=== PATIENT | male | born 1950 | race Caucasian/White ===

== ENCOUNTER 2019-02-07 08:18 | Emergency (ER) | payer MEDICARE, SELFPAY ==
[2019-02-07] VITALS (13 sets, daily range): BP systolic 132–140; BP diastolic 75–82; PULSE 85–109; RESP 14–20; TEMP 36.8; O2SAT 95–97
--- NOTE | 2019-02-07 08:37 | ED.GENADUL_ITS ---
Discharge Plan Disposition Patient Disposition: HOME Condition: Stable Discharge Details Chief Complaint: Abd Prob Clinical Impression: Flank pain, Lytic bone lesions on xray Primary Care Provider: None,None ED Provider: Arvind Humphries Home Meds and New Rx's Prescriptions: Continued ibuprofen [Ibuprofen IB] 200 mg Tablet 800 mg PO PRNRF: 0 naproxen sodium [Aleve] 220 mg Capsule 2 PO PRN PRNRF: 0 Discharge Instructions Instructions: Flank Pain (ED) Additional Instructions: Your cat scan showed lesions in your spine bones likely from a cancer and your prostate is enlarged. It is likely you have prostate cancer. you can take 1000mg tylenol and 600mg ibuprofen every 6 hours for pain as needed You should be contacted with an appointment with a primary care provider and urology. if you feel more ill, have high fevers, or severe worsening pain return to the emergency department Medical Decision Making 68 yo male with no medical problems though hasn't seen a provider in many years per patient, smoker, who drinks 3-4 beers daily but none for a week, who comes in with chief complaint of months of intermittent right sided flank pain and localizes it to the oblique area. States overnight it was severe and now feels better. Does improve with nsaids otherwise cant think of anything thatmakes it better/worse. He is noted to have mild tachycardia on exam, sinus on the monitor otherwise stable in no distress. He has oblique tenderness on the right otherwise no abdominal tenderness. Given location of pain will obtain ct to eval for kidney stone and possible rcc vs hcc given his smoking and drinking history and monitor. no chest pain or pressure and pain is reproducible in the oblique area so doubt entities such as acs, pe or dissection at this time Pt remains stable, HR now in the 90's and he no longer has pain. Per Dr. siddiqui the patient has lytic lesions in the spine and his prostate is enlarged on the CT. I suspect he has prostate cancer. He has no weakness, urinary retention or saddle anesthesia so do not feel emergent mri inidicated. Labs show elevated alk phos consistent with the lytic lesions otherwise no acute significant abnormalities. The patient was told of these results and understood the results. I am referring him to get set up with a pcp and also urology for further workup and he will ultimately need oncology which he understands. He understands he needs to return if worsening and again understands the importance of f/u if he wishes to have further workup for his undiagnosed cancer Differential Diagnosis Differential Diagnosis: kidney stone, spasm, rcc, hcc Imaging Data Radiologic Study: Attestation: I personally reviewed and interpreted this imaging study as follows: Imaging: CT Scan Radiologist's impression: lytic lesions in spine, enlarged prostate Lab Data Lab results reviewed: Yes I reviewed the patient's lab results. HPI General Mode of arrival: ambulatory . Date/Time Provider Initiated Documentation: 02/07/19 08:19 . Limitations to Documentation: no limitations . Information obtained by: patient . History of Present Illness 68 year old M presents to the emergency department with the chief complaint of flank pain, described as moderate, Patient started experiencing this month(s) (2) and it has been intermittent. Medication improves symptom(s), No exacerbating factors reported . Patient did receive the following treatments prior to arrival, none Related Data Home Medications Medication Instructions Recorded Confirmed ibuprofen [Ibuprofen IB] 800 mg PO PRN 02/07/19 naproxen sodium [Aleve] 2 PO PRN PRN 02/07/19 Allergies Allergy/AdvReac Type Severity Reaction Status Date / Time No Known Allergies Allergy Unverified 02/07/19 10:06 Review of Systems Review of Systems ROS Unobtainable: All systems reviewed & are unremarkable except as noted in HPI and below Constitutional Constitutional: Denies chills, Denies fever(s) and Denies weakness Cardiovascular Cardiovascular: Denies chest pain and Denies dyspnea Respiratory Respiratory: Denies dyspnea Gastrointestinal Gastrointestinal: Denies vomiting Musculoskeletal Musculoskeletal: Denies joint swelling Neurologic Neurologic: Denies weakness PFSH Social History Smoking/Tobacco Use Status: Former Tobacco Use Do you feel safe at home: Yes Do you feel safe in your relationship?: Yes Exam Const General: no acute distress Orientation: alert HENMT Head: normal to inspection Ears: external ears normal General nose exam: external nose normal Mouth: moist mucous membranes Eyes General: appearance normal, both eyes and all related structures Neck Neck: normal visual inspection Resp Effort & Inspection: normal respiratory effort and able to speak in complete sentences Cardio Rate: tachycardic GI Palpation: soft Skin General skin exam: no rashes or lesions noted Neuro General: alert and oriented x3 Extrem General: normal to inspection Psych Mental Status: mental status grossly normal
--- NOTE | 2019-02-07 08:37 | DI.CT_ITS ---
SYMPTOM/DIAGNOSIS: RIGHT FLANK PAIN CT ABDOMEN AND PELVIS: There are no prior comparison exams. A noncontrast exam was performed. The heart size is normal. The lung bases show mild interstitial thickening. The liver, gallbladder, spleen, pancreas and adrenals appear normal. There is slight motion at the level of the kidneys. No hydronephrosis or renal or ureteral calculi are seen. The prostate is enlarged. There is mild bladder wall thickening. The appendix appears normal. Thee is no bowel dilatation or wall thickening. No free air, free fluid or adenopathy seen. There are minimal bilateral fatty containing inguinal hernias. The bones have a diffusely mottled lytic and sclerotic appearance throughout the spine, pelvis and ribs. The findings are suspicious for metastatic disease. IMPRESSION: Diffusely abnormal lytic and sclerotic bony lesions highly suspicious for bony metastases. An enlarged prostate is also seen. There is no evidence of urinary tract calculi or hydronephrosis.
[2019-02-07 09:18] LABS: Abs Immature Grans 0.14 k/cumm (0.0-0.09); HCT 38.6 % (40.0-50.0); HGB 12.8 g/dL (13.5-17.5); Mean Corp. HGB Concentration 33.2 g/dL (32.0-36.0); Mean Corpuscular Hemoglobin 30.3 pg (27.0-33.0); Mean Corpuscular Volume 91.5 fL (80-95); Mean Platelet Volume 8.9 fL (8.0-11.0); Platelet Count 155 x1000/uL (130-400); RBC 4.22 m/cumm (4.50-6.00); RBC Distribution Width 14.5 % (11.8-14.1)
[2019-02-07] MEDS: Normal Saline 1,000 ML 1000 ML IV (09:19)
[2019-02-07 09:39] LABS: Absolute Lymphocyte Count 1.85 k/cumm (1.2-3.4); Absolute Monocyte Count 0.35 k/cumm (0.11-0.7); Atypical Lymphocytes % 6
[2019-02-07 09:40] LABS: Diff Comment Manual Differential; Polychromasia Present
[2019-02-07 09:46] LABS: ALT 30 U/L (16-63); AST 85 U/L (15-37); Albumin 3.2 g/dL (3.4-5.0); Anion Gap 10.4 mmol/L (3-11); BUN 18 mg/dL (7-18); Bilirubin, Total 0.6 mg/dL (0.2-1.0); CO2 25.6 mmol/L (21.0-32.0); CREATININE 0.73 mg/dL (0.70-1.30); Calcium 8.5 mg/dL (8.5-10.1); Chloride 102 mmol/L (98-107); Glucose 133 mg/dL (70-100); Lipase 64 U/L (73-393); Magnesium 1.9 mg/dL (1.8-2.4); Sodium 138 mmol/L (136-145); Total Protein 6.4 g/dL (6.4-8.2)
[2019-02-07 09:58] LABS: INR 1.1 (0.9-1.1); PTT Activated 24.2 sec (21.0-31.4); Prothrombin Time 10.8 sec (9.3-11.0)
[2019-02-07 10:00] LABS: Bilirubin Negative (Negative); Blood Negative (Negative); Clarity Clear (Clear); Glucose Negative (Negative); Ketones Negative (Negative); Leukocyte Esterase Negative (Negative); Nitrite Negative (Negative); Specific Gravity 1.015 (1.005-1.025); Urobilinogen 0.2 EU/dL (Up TO 0.2)
[2019-02-07 10:10] LABS: Alkaline Phosphatase 2214 U/L (46-116)
[2019-02-07 10:15] LABS: Bacteria Rare HPF (Negative); Crystals Negative HPF (Negative); Epithelial Cells Rare HPF (Negative); RBC Negative (0-2); WBC 0-2 HPF (0-5)
[2019-02-07 10:16] LABS: C & S Indicated? No; Casts Negative LPF (Negative); Mucus Trace (Negative)
--- NOTE | 2019-02-07 10:43 | NUR.NOTE ---
Faxed referral to [facility] and spoke with Yari [facility] [place] Fredo about getting patient established with pcp timi due to diagnosis.Nursing Note:
== END 2019-02-07 10:46 | disposition home or self-care (01) ==
PROVIDERS: Emergency Provider Emergency Medicine; PCP Nurse Practitioner Family
DX: M89.8X8 Other specified disorders of bone, other site (principal); N40.0 Benign prostatic hyperplasia without lower urinary tract symptoms; M54.5 Low back pain; R74.8 Abnormal levels of other serum enzymes; Z87.891 Personal history of nicotine dependence
CPT/HCPCS: 36415; 80053; 83690; 96360; 99284; 74176; 81003; 81015; 83735; 85025; 85610; 85730

== ENCOUNTER 2019-02-11 13:13 | Outpatient (REF) | payer MEDICARE, SELFPAY ==
[2019-02-13 12:05] LABS: Hepatitis C Ab w Rflx HCV PCR Negative (NEGAT)
[2019-02-13 12:12] LABS: Transferrin 167 mg/dL (201-352)
== END 2019-02-11 13:33 ==
LOC: NCHCN 13:13
PROVIDERS: PCP Nurse Practitioner Family; Visit Provider Family Medicine
DX: R79.89 Other specified abnormal findings of blood chemistry (principal); N40.0 Benign prostatic hyperplasia without lower urinary tract symptoms; R93.7 Abnormal findings on diagnostic imaging of other parts of musculoskeletal system; Z11.59 Encounter for screening for other viral diseases
CPT/HCPCS: 86803; 84153; 84466

== ENCOUNTER → 2019-02-17 14:20 | Outpatient (BNVA) | payer MEDICARE, SELFPAY | PROVIDERS: PCP Nurse Practitioner Family; Visit Provider Nurse Practitioner Gerontology | DX: N40.2 Nodular prostate without lower urinary tract symptoms (principal); R97.20 Elevated prostate specific antigen [PSA] | CPT/HCPCS: 99204; 99215 ==

== ENCOUNTER 2019-02-18 09:59 | Outpatient (CLI) | payer MEDICARE, SELFPAY ==
--- NOTE | 2019-02-18 11:00 | DI.US_ITS ---
EXAM: US PROSTATE BIOPSY CLINICAL HISTORY: elevated PSA; prostate nodule, N40.2. TECHNIQUE: Ultrasound performed using standard protocol. COMPARISON: No exams were available for comparison FINDINGS: Under ultrasound guidance biopsies of the prostate were obtained. Please see the procedure report fo r further information.
--- NOTE | 2019-02-18 11:10 | PROST_PTH ---
PATIENT: Arvind Blood LOC: MIC U#:[id number] AGE/SX: 68/M ROOM: RE02/18/[address]: Don Ibarra MD : [id number] BED: DIS: 02/18/2019 SPEC #: [id number] RECD: 02/18/19 12:48 STATUS: ERWIN JARAMILLO #: [id number] DESTINY: 02/18/19 11:[address]: Don Ibarra DEPT: Surgical Specimen RECD BY: Megan Watson ENTERED: 02/18/19 12:50 SP TYPE: PROST OTHR DR: Evelina Brooks Tissues: 1 - PROSTATE NEEDLE BIOPSY 2 - PROSTATE NEEDLE BIOPSY 3 - PROSTATE NEEDLE BIOPSY 4 - PROSTATE NEEDLE BIOPSY 5 - PROSTATE NEEDLE BIOPSY 6 - PROSTATE NEEDLE BIOPSY 7 - PROSTATE NEEDLE BIOPSY 8 - PROSTATE NEEDLE BIOPSY 9 - PROSTATE NEEDLE BIOPSY 10 - PROSTATE NEEDLE BIOPSY 11 - PROSTATE NEEDLE BIOPSY 12 - PROSTATE NEEDLE BIOPSY Procedures: GROSS AND MICRO LEVEL 4 Comments: [id number]
--- NOTE | 2019-02-18 12:27 | ROE_ITS ---
DATE OF PROCEDURE: February 18, 2019 PRE-PROCEDURE DIAGNOSIS: Elevated PSA with abnormal prostate exam and bony lesions. POST-PROCEDURE DIAGNOSIS: Same. PROCEDURE: Transrectal ultrasound-guided biopsy of the prostate. SURGEON: Don Ibarra M.D. ANESTHESIA: Local. COMPLICATIONS: None. HISTORY: This is a 68-year-old gentleman who's had several months of persistent back and hip pain. When the pain became intolerable, he presented to the Emergency Room. He was evaluated with a non-co ntrast CT scan. Multiple bony lesions were identified. Since then, he's had a PSA level drawn which was elevated at 88 ng/mL. On prostate exam he has a firm area on the right side of the prostate. H e presents for ultrasound-guided biopsy of the prostate for tissue diagnosis. PROCEDURE: The patient was brought to the procedure room on 02/18/19. He was placed in the left late ral position. A transrectal ultrasound probe was passed through the anal verge and the prostate was imaged in trans verse and longitudinal planes. The prostate was measured at approximately 46 cc's. There was some normal architecture seen on the left side of the prostate. Specifically, the delineat ion between the transition and peripheral zones was present. This normal architecture was lost on th e right side of the prostate. We did a periprostatic nerve block using 1% Xylocaine without epinephrine. We then took a total of 1 2 laterally-directed biopsies and sent them to Pathology for permanent section. The probe was removed. The patient tolerated this procedure well. With the high likelihood of metastatic prostate cancer being present, I went ahead and started him on Casodex 50 mg daily until the biopsy results are available. At that time he will likely start Lupro n. cc: Evelina Brooks N.P. Meera Chavez M.D.
== END 2019-02-18 10:19 ==
PROVIDERS: PCP Nurse Practitioner Family; Visit Provider Urology
DX: N40.2 Nodular prostate without lower urinary tract symptoms (principal); C61 Malignant neoplasm of prostate; R97.20 Elevated prostate specific antigen [PSA]
CPT/HCPCS: 55700; 76942; 76872; 88305

== ENCOUNTER 2019-02-19 13:38 | Outpatient (REF) | payer MEDICARE, SELFPAY | END 2019-02-19 13:58 | LOC: NCHCN 13:38 | PROVIDERS: PCP Nurse Practitioner Family; Visit Provider Nurse Practitioner Family | DX: R35.0 Frequency of micturition (principal) | CPT/HCPCS: 87086 ==

== ENCOUNTER → 2019-03-06 09:00 | Outpatient (BNVA) | payer MEDICARE, MEDICAID, SELFPAY | PROVIDERS: PCP Nurse Practitioner Family; Referring Provider Nurse Practitioner Family; Visit Provider Urology | DX: Z48.816 Encounter for surgical aftercare following surgery on the genitourinary system (principal); C61 Malignant neoplasm of prostate | CPT/HCPCS: 96402; 99214; J9217 ==

== ENCOUNTER 2019-04-03 02:59 | Outpatient (CLI) | payer MEDICARE, MEDICAID, SELFPAY ==
[2019-04-03 13:09] LABS: Abs Immature Grans 0.11 k/cumm (0.0-0.09); HCT 25.4 % (40.0-50.0); HGB 7.8 g/dL (13.5-17.5); Mean Corp. HGB Concentration 30.7 g/dL (32.0-36.0); Mean Corpuscular Hemoglobin 30.7 pg (27.0-33.0); Mean Platelet Volume 9.1 fL (8.0-11.0); Platelet Count 129 x1000/uL (130-400); RBC 2.54 m/cumm (4.50-6.00); RBC Distribution Width 18.5 % (11.8-14.1); White Blood Cell Count 3.74 k/cumm (4.4-10.8)
[2019-04-03 13:26] LABS: ALT 23 U/L (16-63); AST 26 U/L (15-37); Albumin 3.1 g/dL (3.4-5.0); Anion Gap 8.7 mmol/L (3-11); BUN 13 mg/dL (7-18); Bilirubin, Total 0.3 mg/dL (0.2-1.0); CO2 26.3 mmol/L (21.0-32.0); Calcium 8.1 mg/dL (8.5-10.1); Chloride 108 mmol/L (98-107); Glucose 134 mg/dL (70-100); Potassium 3.6 mmol/L (3.5-5.1); Sodium 143 mmol/L (136-145)
[2019-04-03 13:30] LABS: Absolute Eosinophil Count 0.11 k/cumm (0.0-0.7); Absolute Monocyte Count 0.22 k/cumm (0.11-0.7); Absolute Neutrophil Count 1.42 k/cumm (1.2-6.7); Nucleated RBC 5 /100WBC
[2019-04-03 13:31] LABS: Anisocytosis 2+; Basophilic Stippling Present; Diff Comment Manual Differential; Polychromasia Present
[2019-04-03 13:54] LABS: Alkaline Phosphatase 2379 U/L (46-116)
[2019-04-03] MEDS: Omnipaque 350 MG/ML 100 ML BTL IJ (14:00)
--- NOTE | 2019-04-03 14:30 | DI.CT_ITS ---
EXAM: CT CHEST W CLINICAL HISTORY: PROSTATE CA METASTATIC TO MULTIPLE SITES, C61, STAGING EXAM TECHNIQUE: CT examination chest was performed with a bolus infusion of 70 cc of Omnipaque 350. COMPARISON: No exams were available for comparison FINDINGS: There are innumerable mixed sclerotic and lytic lesions involving all the visualized bones consistent with widespread bony metastasis from known prostate carcinoma. Images obtained through the upper abdomen show grossly unremarkable appearance of visualized portions of liver, spleen, kidneys, adrenals and pancreas. There is mild prominence of mediastinal lymph nodes at multiple sites including subcarinal nodes regina uring up to about 2.5 cm in diameter and pretracheal nodes of about 12 millimeters in diameter. Trac heobronchial tree appears intact. No significant abnormality of thoracic aorta. No evidence of pulm onary embolic disease although the pulmonary arterial circulation is not ideally opacified. There are small bilateral pleural effusions. There is a 6 millimeter in diameter right lower lobe in trapulmonary nodule. There are a number of other areas of poorly defined, vaguely nodular increased radiodensity, the most prominent in left upper lobe laterally. Findings as described are suspicious for early prostatic pulmonary metastatic disease but no dominant mass is identified. IMPRESSION: Findings consistent with severe widespread bony metastatic disease from prostate carcinoma. Findings worrisome for multiple intrapulmonary metastatic lesions, please see above discussion. Slight prominence of mediastinal lymph nodes at multiple sites, indeterminate for metastatic disease.
[2019-04-04 13:54] LABS: PSA, Diagnostic 586.9 ng/ml (0-4.5)
[2019-04-07 12:29] LABS: Testosterone, Total 8.9 ng/dL (240-950)
== END 2019-04-03 03:19 ==
PROVIDERS: PCP Nurse Practitioner Family; Visit Provider Internal Medicine
DX: C61 Malignant neoplasm of prostate (principal); C79.51 Secondary malignant neoplasm of bone; J90 Pleural effusion, not elsewhere classified; R91.1 Solitary pulmonary nodule; R59.0 Localized enlarged lymph nodes; J98.4 Other disorders of lung
CPT/HCPCS: 80053; 84403; 71260; 84153; 85025; J3490

== ENCOUNTER 2019-04-08 16:42 | Outpatient (CLI) | payer MEDICARE, MEDICAID, SELFPAY | END 2019-04-08 17:02 | PROVIDERS: PCP Nurse Practitioner Family; Visit Provider Internal Medicine | DX: C61 Malignant neoplasm of prostate (principal); D63.0 Anemia in neoplastic disease | CPT/HCPCS: 36415; 80053; 84403; 86850; 86900; 86901; 86920; 82607; 82728; 82746; 84153; 85025 ==

== ENCOUNTER 2019-04-15 01:27 | Outpatient (RCR) | payer MEDICARE, MEDICAID, SELFPAY ==
[2019-04-08 17:19] LABS: Abs Immature Grans 0.12 k/cumm (0.0-0.09); HCT 28.7 % (40.0-50.0); Mean Corp. HGB Concentration 31.4 g/dL (32.0-36.0); Mean Corpuscular Hemoglobin 31.1 pg (27.0-33.0); Mean Corpuscular Volume 99.3 fL (80-95); Mean Platelet Volume 9.5 fL (8.0-11.0); Platelet Count 146 x1000/uL (130-400); RBC 2.89 m/cumm (4.50-6.00); RBC Distribution Width 18.7 % (11.8-14.1); White Blood Cell Count 3.68 k/cumm (4.4-10.8)
[2019-04-08 19:35] LABS: ALT 26 U/L (16-63); AST 26 U/L (15-37); Albumin 3.6 g/dL (3.4-5.0); Anion Gap 10.5 mmol/L (3-11); BUN 12 mg/dL (7-18); Bilirubin, Total 0.5 mg/dL (0.2-1.0); CO2 25.5 mmol/L (21.0-32.0); CREATININE 0.69 mg/dL (0.70-1.30); Calcium 8.3 mg/dL (8.5-10.1); Chloride 107 mmol/L (98-107); Folate 19.4 ng/mL (8.6-20.0); Glucose 122 mg/dL (70-100); Potassium 3.7 mmol/L (3.5-5.1); Sodium 143 mmol/L (136-145); Total Protein 6.1 g/dL (6.4-8.2); Vitamin B12 432 pg/mL (193-986)
[2019-04-08 19:54] LABS: Alkaline Phosphatase 2253 U/L (46-116); Ferritin > 1000 ng/mL (8-388)
[2019-04-08 21:19] LABS: Absolute Basophil Count 0.04 k/cumm (0.0-0.2); Absolute Lymphocyte Count 0.85 k/cumm (1.2-3.4); Absolute Monocyte Count 0.04 k/cumm (0.11-0.7); Absolute Neutrophil Count 2.65 k/cumm (1.2-6.7)
[2019-04-08 21:20] LABS: Diff Comment Manual Differential; Macrocytosis 1+; Nucleated RBC 6 /100WBC
[2019-04-10] VITALS (12 sets, daily range): BP systolic 104–163; BP diastolic 55–77; PULSE 59–75; RESP 18–19; TEMP 36.6–37.2; O2SAT 99–100
[2019-04-10 08:04] LABS: HCT 25.6 % (40.0-50.0); HGB 7.9 g/dL (13.5-17.5)
[2019-04-10] MEDS: Normal Saline Flush 10 ML SYR IVP (08:05)
[2019-04-14 16:29] LABS: PSA, Diagnostic 285.4 ng/ml (0-4.5)
[2019-04-15 08:26] LABS: Abs Immature Grans 0.49 k/cumm (0.0-0.09); Absolute Basophil Count 0.05 k/cumm (0.0-0.2); HCT 31.7 % (40.0-50.0); HGB 9.9 g/dL (13.5-17.5); Mean Corp. HGB Concentration 31.2 g/dL (32.0-36.0); Mean Corpuscular Hemoglobin 30.3 pg (27.0-33.0); Mean Corpuscular Volume 96.9 fL (80-95); Mean Platelet Volume 9.8 fL (8.0-11.0); Platelet Count 133 x1000/uL (130-400); RBC 3.27 m/cumm (4.50-6.00); RBC Distribution Width 16.9 % (11.8-14.1)
[2019-04-15 08:55] LABS: ALT 25 U/L (16-63); AST 20 U/L (15-37); Albumin 3.5 g/dL (3.4-5.0); Anion Gap 10.2 mmol/L (3-11); BUN 10 mg/dL (7-18); Bilirubin, Total 0.3 mg/dL (0.2-1.0); CO2 25.8 mmol/L (21.0-32.0); CREATININE 0.72 mg/dL (0.70-1.30); Calcium 8.3 mg/dL (8.5-10.1); Chloride 107 mmol/L (98-107); Glucose 140 mg/dL (70-100); Potassium 3.6 mmol/L (3.5-5.1); Sodium 143 mmol/L (136-145); Total Protein 6.3 g/dL (6.4-8.2)
[2019-04-15 09:01] LABS: Alkaline Phosphatase 1340 U/L (46-116)
[2019-04-15 09:05] LABS: Absolute Eosinophil Count 0.05 k/cumm (0.0-0.7); Absolute Lymphocyte Count 1.67 k/cumm (1.2-3.4); Absolute Monocyte Count 0.27 k/cumm (0.11-0.7); Absolute Neutrophil Count 2.07 k/cumm (1.2-6.7); Anisocytosis 1+; Atypical Lymphocytes % 2; Diff Comment Manual Differential; Hypochromasia 1+; Nucleated RBC 1 /100WBC
[2019-04-15 09:14] LABS: Testosterone, Total <7.0 ng/dL (240-950)
== END 2019-04-26 23:59 | disposition home or self-care (01) ==
LOC: INF 01:27
PROVIDERS: PCP Nurse Practitioner Family; Visit Provider Internal Medicine
DX: C61 Malignant neoplasm of prostate (principal)
CPT/HCPCS: 36415; 36430; 80053; 86900; 86901; 85014; 85018; 85025; P9016

== ENCOUNTER 2019-05-05 15:54 | Outpatient (REF) | payer MEDICARE, MEDICAID, SELFPAY ==
[2019-05-05 21:50] LABS: HCT 29.4 % (40.0-50.0); HGB 9.3 g/dL (13.5-17.5); Mean Corp. HGB Concentration 31.6 g/dL (32.0-36.0); Mean Corpuscular Hemoglobin 31.1 pg (27.0-33.0); Mean Corpuscular Volume 98.3 fL (80-95); Mean Platelet Volume 10.7 fL (8.0-11.0); Platelet Count 196 x1000/uL (130-400); RBC 2.99 m/cumm (4.50-6.00); RBC Distribution Width 16.8 % (11.8-14.1)
[2019-05-05 21:55] LABS: BUN 16 mg/dL (7-18); CREATININE 0.61 mg/dL (0.70-1.30)
[2019-05-05 23:43] LABS: Absolute Eosinophil Count 0.12 k/cumm (0.0-0.7); Absolute Lymphocyte Count 1.92 k/cumm (1.2-3.4); Absolute Monocyte Count 0.81 k/cumm (0.11-0.7); Absolute Neutrophil Count 3.35 k/cumm (1.2-6.7); Anisocytosis 1+; Diff Comment Manual Differential; Hypochromasia 1+
== END 2019-05-05 16:14 ==
LOC: NCHCN 15:54
PROVIDERS: PCP Nurse Practitioner Family; Visit Provider Nurse Practitioner Family
DX: C61 Malignant neoplasm of prostate (principal)
CPT/HCPCS: 84520; 82565; 85025

== ENCOUNTER 2019-05-20 03:32 | Outpatient (RCR) | payer MEDICARE, MEDICAID, SELFPAY ==
[2019-04-29] MEDS: Normal Saline Flush 10 ML SYR IVP (08:37)
[2019-04-29 08:43] LABS: Abs Immature Grans 0.02 k/cumm (0.0-0.09); Absolute Basophil Count 0.11 k/cumm (0.0-0.2); Absolute Eosinophil Count 0.07 k/cumm (0.0-0.7); Absolute Lymphocyte Count 1.09 k/cumm (1.2-3.4); Absolute Monocyte Count 0.57 k/cumm (0.11-0.7); Absolute Neutrophil Count 2.85 k/cumm (1.2-6.7); Basophils % 2.3; Eosinophils % 1.5; HGB 9.1 g/dL (13.5-17.5); Immature Grans % 0.4; Lymphocytes % 23.1; Mean Corp. HGB Concentration 31.4 g/dL (32.0-36.0); Mean Corpuscular Hemoglobin 30.8 pg (27.0-33.0); Mean Corpuscular Volume 98.3 fL (80-95); Mean Platelet Volume 9.1 fL (8.0-11.0); Monocytes % 12.1; Neutrophils % 60.6; Platelet Count 235 x1000/uL (130-400); RBC 2.95 m/cumm (4.50-6.00); RBC Distribution Width 17.1 % (11.8-14.1); White Blood Cell Count 4.71 k/cumm (4.4-10.8)
[2019-04-29 09:04] LABS: ALT 23 U/L (16-63); AST 18 U/L (15-37); Albumin 3.4 g/dL (3.4-5.0); Alkaline Phosphatase 714 U/L (46-116); Anion Gap 9.3 mmol/L (3-11); BUN 15 mg/dL (7-18); Bilirubin, Total 0.4 mg/dL (0.2-1.0); CO2 26.7 mmol/L (21.0-32.0); CREATININE 0.65 mg/dL (0.70-1.30); Calcium 8.5 mg/dL (8.5-10.1); Chloride 106 mmol/L (98-107); Glucose 95 mg/dL (74-106); Potassium 3.7 mmol/L (3.5-5.1); Sodium 142 mmol/L (136-145); Total Protein 6.2 g/dL (6.4-8.2)
[2019-04-30 15:33] LABS: PSA, Diagnostic 30.1 ng/mL (0.0-4.5)
[2019-05-20 09:44] LABS: Abs Immature Grans 0.01 k/cumm (0.0-0.09); Absolute Basophil Count 0.09 k/cumm (0.0-0.2); Absolute Eosinophil Count 0.09 k/cumm (0.0-0.7); Absolute Lymphocyte Count 0.73 k/cumm (1.2-3.4); Absolute Monocyte Count 0.56 k/cumm (0.11-0.7); Absolute Neutrophil Count 2.92 k/cumm (1.2-6.7); HCT 33.6 % (40.0-50.0); HGB 10.5 g/dL (13.5-17.5); Immature Grans % 0.2; Lymphocytes % 16.6; Mean Corp. HGB Concentration 31.3 g/dL (32.0-36.0); Mean Corpuscular Hemoglobin 30.9 pg (27.0-33.0); Mean Corpuscular Volume 98.8 fL (80-95); Monocytes % 12.7; Neutrophils % 66.5; Platelet Count 232 x1000/uL (130-400); RBC Distribution Width 17.2 % (11.8-14.1)
[2019-05-20 09:57] LABS: ALT 20 U/L (16-63); AST 23 U/L (15-37); Albumin 3.3 g/dL (3.4-5.0); Alkaline Phosphatase 365 U/L (46-116); Anion Gap 8.3 mmol/L (3-11); BUN 11 mg/dL (7-18); Bilirubin, Total 0.5 mg/dL (0.2-1.0); CO2 27.7 mmol/L (21.0-32.0); CREATININE 0.65 mg/dL (0.70-1.30); Calcium 8.3 mg/dL (8.5-10.1); Chloride 106 mmol/L (98-107); Glucose 128 mg/dL (74-106); Potassium 3.9 mmol/L (3.5-5.1); Sodium 142 mmol/L (136-145); Total Protein 6.1 g/dL (6.4-8.2)
[2019-05-22 09:58] LABS: PSA, Diagnostic 6.3 ng/mL (0.0-4.5)
[2019-05-24 02:43] LABS: Testosterone, Total <7.0 ng/dL (240-950)
== END 2019-05-27 23:59 | disposition home or self-care (01) ==
LOC: INF 03:32
PROVIDERS: PCP Nurse Practitioner Family; Visit Provider Internal Medicine
DX: C61 Malignant neoplasm of prostate (principal)
CPT/HCPCS: 36415; 80053; 84403; 86900; 86901; 84153; 85025

== ENCOUNTER 2019-06-10 01:54 | Outpatient (RCR) | payer MEDICARE, MEDICAID, SELFPAY ==
[2019-06-10 10:26] LABS: Abs Immature Grans 0.01 k/cumm (0.0-0.09); Absolute Basophil Count 0.11 k/cumm (0.0-0.2); Absolute Eosinophil Count 0.08 k/cumm (0.0-0.7); Absolute Lymphocyte Count 1.25 k/cumm (1.2-3.4); Absolute Monocyte Count 0.63 k/cumm (0.11-0.7); Absolute Neutrophil Count 2.73 k/cumm (1.2-6.7); Basophils % 2.3; Eosinophils % 1.7; HCT 37.3 % (40.0-50.0); Immature Grans % 0.2 %; Mean Corp. HGB Concentration 32.2 g/dL (32.0-36.0); Mean Corpuscular Hemoglobin 31.1 pg (27.0-33.0); Mean Corpuscular Volume 96.6 fL (80-95); Mean Platelet Volume 9.5 fL (8.0-11.0); Monocytes % 13.1; Neutrophils % 56.7; Platelet Count 266 x1000/uL (130-400); RBC 3.86 m/cumm (4.50-6.00); RBC Distribution Width 16.3 % (11.8-14.1); White Blood Cell Count 4.81 k/cumm (4.4-10.8)
[2019-06-10 10:38] LABS: ALT 19 U/L (16-63); AST 20 U/L (15-37); Albumin 3.4 g/dL (3.4-5.0); Alkaline Phosphatase 275 U/L (46-116); Anion Gap 8.4 mmol/L (3-11); BUN 12 mg/dL (7-18); Bilirubin, Total 0.4 mg/dL (0.2-1.0); CO2 27.6 mmol/L (21.0-32.0); CREATININE 0.57 mg/dL (0.70-1.30); Calcium 8.7 mg/dL (8.5-10.1); Chloride 107 mmol/L (98-107); Glucose 86 mg/dL (74-106); Potassium 3.9 mmol/L (3.5-5.1); Sodium 143 mmol/L (136-145); Total Protein 6.3 g/dL (6.4-8.2)
[2019-06-11 10:17] LABS: PSA, Diagnostic 2.5 ng/mL (0.0-4.5)
== END 2019-06-27 23:59 | disposition home or self-care (01) ==
LOC: INF 01:54
PROVIDERS: PCP Nurse Practitioner Family; Visit Provider Internal Medicine
DX: C61 Malignant neoplasm of prostate (principal)
CPT/HCPCS: 36415; 80053; 84153; 85025

== ENCOUNTER 2019-07-22 02:08 | Outpatient (RCR) | payer MEDICARE, MEDICAID, SELFPAY ==
[2019-07-01 10:48] LABS: Abs Immature Grans 0.01 k/cumm (0.0-0.09); Absolute Basophil Count 0.09 k/cumm (0.0-0.2); Absolute Eosinophil Count 0.06 k/cumm (0.0-0.7); Absolute Lymphocyte Count 1.46 k/cumm (1.2-3.4); Absolute Monocyte Count 0.81 k/cumm (0.11-0.7); Absolute Neutrophil Count 2.68 k/cumm (1.2-6.7); Basophils % 1.8; Eosinophils % 1.2; HCT 39.2 % (40.0-50.0); HGB 12.4 g/dL (13.5-17.5); Immature Grans % 0.2 %; Lymphocytes % 28.6; Mean Corp. HGB Concentration 31.6 g/dL (32.0-36.0); Mean Corpuscular Hemoglobin 30.4 pg (27.0-33.0); Mean Corpuscular Volume 96.1 fL (80-95); Mean Platelet Volume 9.7 fL (8.0-11.0); Monocytes % 15.9; Neutrophils % 52.3; Platelet Count 242 x1000/uL (130-400); RBC 4.08 m/cumm (4.50-6.00); RBC Distribution Width 16.2 % (11.8-14.1); White Blood Cell Count 5.11 k/cumm (4.4-10.8)
[2019-07-01 11:07] LABS: ALT 22 U/L (16-63); AST 22 U/L (15-37); Albumin 3.4 g/dL (3.4-5.0); Alkaline Phosphatase 178 U/L (46-116); BUN 14 mg/dL (7-18); Bilirubin, Total 0.3 mg/dL (0.2-1.0); CREATININE 0.69 mg/dL (0.70-1.30); Calcium 8.3 mg/dL (8.5-10.1); Chloride 108 mmol/L (98-107); Glucose 95 mg/dL (74-106); Potassium 4.2 mmol/L (3.5-5.1); Sodium 142 mmol/L (136-145)
[2019-07-01 12:57] LABS: Magnesium 1.9 mg/dL (1.8-2.4)
[2019-07-02 12:12] LABS: PSA, Diagnostic 1.3 ng/mL (0.0-4.5)
[2019-07-03 12:42] LABS: Testosterone, Total <7.0 ng/dL (240-950)
[2019-07-22 10:41] LABS: Abs Immature Grans 0.01 k/cumm (0.0-0.09); Absolute Basophil Count 0.09 k/cumm (0.0-0.2); Absolute Eosinophil Count 0.09 k/cumm (0.0-0.7); Absolute Lymphocyte Count 1.64 k/cumm (1.2-3.4); Absolute Monocyte Count 0.81 k/cumm (0.11-0.7); Absolute Neutrophil Count 2.84 k/cumm (1.2-6.7); Basophils % 1.6; Eosinophils % 1.6; HCT 40.9 % (40.0-50.0); HGB 13.3 g/dL (13.5-17.5); Immature Grans % 0.2 %; Lymphocytes % 29.9; Mean Corp. HGB Concentration 32.5 g/dL (32.0-36.0); Mean Corpuscular Hemoglobin 30.6 pg (27.0-33.0); Mean Platelet Volume 10.1 fL (8.0-11.0); Monocytes % 14.8; Neutrophils % 51.9; Platelet Count 237 x1000/uL (130-400); RBC 4.35 m/cumm (4.50-6.00); RBC Distribution Width 15.7 % (11.8-14.1); White Blood Cell Count 5.48 k/cumm (4.4-10.8)
[2019-07-22 10:59] LABS: ALT 26 U/L (16-63); AST 21 U/L (15-37); Albumin 3.5 g/dL (3.4-5.0); Alkaline Phosphatase 160 U/L (46-116); Anion Gap 6.6 mmol/L (3-11); BUN 14 mg/dL (7-18); Bilirubin, Total 0.4 mg/dL (0.2-1.0); CO2 28.4 mmol/L (21.0-32.0); CREATININE 0.59 mg/dL (0.70-1.30); Calcium 8.5 mg/dL (8.5-10.1); Chloride 107 mmol/L (98-107); Glucose 86 mg/dL (74-106); Magnesium 1.8 mg/dL (1.8-2.4); Potassium 4.1 mmol/L (3.5-5.1); Sodium 142 mmol/L (136-145); Total Protein 6.1 g/dL (6.4-8.2)
[2019-07-23 10:18] LABS: PSA, Diagnostic 0.9 ng/mL (0.0-4.5)
== END 2019-07-26 23:59 | disposition home or self-care (01) ==
LOC: INF 02:08
PROVIDERS: Nurse Practitioner Adult Health; PCP Nurse Practitioner Family; Visit Provider Internal Medicine
DX: C61 Malignant neoplasm of prostate (principal)
CPT/HCPCS: 36415; 80053; 84403; 83735; 84153; 85025

== ENCOUNTER 2019-08-22 02:45 | Outpatient (CLI) | payer MEDICARE, MEDICAID, SELFPAY ==
--- NOTE | 2019-08-22 | DI.NM_ITS ---
EXAM: NM BONE SCAN WHOLE BODY GRP CLINICAL HISTORY: PROSTATE CA METASTATIC, C61. TECHNIQUE: Injected Dose: 26 mCi Tc-99m MDP Delayed Images: 2-3 hours. COMPARISON: CT CHEST/ABD/PEL W from 08/22/2019 FINDINGS: There is diffuse increased radiotracer uptake in the axial and appendicular skeleton consistent with diffuse osseous metastatic disease. Radiotracer activity is seen in the urinary bladder. IMPRESSION: Widespread osseous metastatic disease. DATA REPOSITORY:
[2019-08-22 09:04] LABS: Abs Immature Grans 0.01 k/cumm (0.0-0.09); Absolute Basophil Count 0.04 k/cumm (0.0-0.2); Absolute Eosinophil Count 0.32 k/cumm (0.0-0.7); Absolute Lymphocyte Count 1.39 k/cumm (1.2-3.4); Absolute Monocyte Count 0.72 k/cumm (0.11-0.7); Absolute Neutrophil Count 2.84 k/cumm (1.2-6.7); Basophils % 0.8; HCT 40.9 % (40.0-50.0); HGB 13.3 g/dL (13.5-17.5); Immature Grans % 0.2 %; Lymphocytes % 26.1; Mean Corp. HGB Concentration 32.5 g/dL (32.0-36.0); Mean Corpuscular Hemoglobin 29.9 pg (27.0-33.0); Mean Corpuscular Volume 91.9 fL (80-95); Mean Platelet Volume 10.3 fL (8.0-11.0); Monocytes % 13.5; Neutrophils % 53.4; Platelet Count 221 x1000/uL (130-400); RBC 4.45 m/cumm (4.50-6.00); RBC Distribution Width 15.3 % (11.8-14.1); White Blood Cell Count 5.32 k/cumm (4.4-10.8)
[2019-08-22 09:36] LABS: ALT 30 U/L (16-63); AST 28 U/L (15-37); Albumin 3.6 g/dL (3.4-5.0); Alkaline Phosphatase 139 U/L (46-116); Anion Gap 5.7 mmol/L (3-11); BUN 16 mg/dL (7-18); Bilirubin, Total 0.4 mg/dL (0.2-1.0); CO2 30.3 mmol/L (21.0-32.0); Calcium 8.9 mg/dL (8.5-10.1); Chloride 107 mmol/L (98-107); Glucose 81 mg/dL (74-106); Potassium 3.9 mmol/L (3.5-5.1); Sodium 143 mmol/L (136-145); Total Protein 6.2 g/dL (6.4-8.2)
[2019-08-22] MEDS: Normal Saline Flush 10 ML SYR IVP (09:39)
--- NOTE | 2019-08-22 10:10 | DI.CT_ITS ---
EXAM: CT CHEST/ABD/PEL W CLINICAL HISTORY: PROSTATE CA METASTATIC, C61, REASTAGING EXAM TECHNIQUE: Imaging Protocol: Axial computed tomography images with coronal and sagittal reformatted images were created and reviewed CONTRAST MATERIAL: Intravenous: Omnipaque 350 Contrast volume:structured data in ml Oral: yes / no COMPARISON: CT renal colic wo from 02/07/2019 CT renal colic wo from 02/07/2019 CT CHEST W from 04/03/2019 CT CHEST W from 04/03/2019 FINDINGS: CHEST: Tracheobronchial tree: Patent where visualized. Mediastinum and Amy: The lymph nodes in the mediastinum are stable. Pulmonary parenchyma: Emphysematous changes are present in the lungs. No focal consolidating infiltr ates are present. The 6 mm right lower lobe pulmonary nodule is stable. There are 2 small nodular d ensities associated with the right minor fissure likely reflecting lymph nodes. These are stable. N o new pulmonary nodules are present. Pleura: There is no pneumothorax. The pleural effusions have resolved. Heart: The heart is not dilated. No coronary artery calcifications are seen. No significant pericardi al effusion. Aorta: Thoracic aorta non-dilated. Atherosclerosis. Lymph nodes: Please see the above. Bones:Widespread sclerotic metastatic disease. No acute fracture or dislocation. ABDOMEN: Liver: Normal density. No measurable mass. Portal, Superior Mesenteric, and Splenic Veins: Unremarkable. Gallbladder and Biliary Tract: No radiodense calculus or dilation. Pancreas: Normal density, no abnormal calcifications or inflammatory process. Spleen: Normal. Adrenals: No masses seen. Kidneys: Normal size, contour and axis. No radiodense stones or obstructive uropathy. No masses seen. Stable cyst in the superior pole of the left kidney. Abdominal Aorta: Abdominal portion non-dilated. Atherosclerosis. Bowel: No obstruction or bowel wall thickening. Appendix is unremarkable. Small hiatal hernia. Peritoneal Cavity: No ascites, collection or mesenteric inflammatory response. Lymph Nodes: Within normal limits. Bones: Diffuse sclerotic metastatic disease. No acute fractures or subluxations. Soft Tissues: Unremarkable. PELVIS: Bladder: Symmetric distention, no gross wall thickening. Reproductive Organs: Mildly enlarged. Lymph Nodes: Within normal limits. Bones: Widespread sclerotic metastatic disease. No acute fracture or dislocation. IMPRESSION: 1. Diffuse widespread osseous metastatic disease. 2. Stable pulmonary nodules. RADIATION DOSE DELIVERED: DATA REPOSITORY: All CT scans at this facility are submitted to the National Radiology Data Registry (NRDR) Dose Index Registry (DIR) with the [employer] (ACR). RADIATION OPTIMIZATION: All CT scans at this facility use at least one of these dose optimization te chniques: automated exposure control; mA and/or kV adjustment per patient size (includes targeted exa ms where dose is matched to clinical indication); or iterative reconstruction.
[2019-08-22] MEDS: Omnipaque 350 MG/ML 100 ML BTL IJ (10:29)
[2019-08-25 10:21] LABS: PSA, Diagnostic 0.7 ng/mL (0.0-4.5)
[2019-08-26 23:27] LABS: Testosterone, Total 7.1 ng/dL (240-950)
== END 2019-08-22 03:05 ==
PROVIDERS: PCP Nurse Practitioner Family; Visit Provider Nurse Practitioner Adult Health
DX: C61 Malignant neoplasm of prostate (principal); C79.51 Secondary malignant neoplasm of bone; J43.9 Emphysema, unspecified; R91.8 Other nonspecific abnormal finding of lung field
CPT/HCPCS: 36415; 74177; 78306; 80053; 84403; 71260; 84153; 85025; J3490

== ENCOUNTER 2019-08-22 08:00 | Outpatient (RCR) | payer MEDICARE, MEDICAID, SELFPAY | END 2019-08-26 23:59 | disposition home or self-care (01) | LOC: INF 08:00 | PROVIDERS: PCP Nurse Practitioner Family; Visit Provider Internal Medicine | DX: C61 Malignant neoplasm of prostate (principal); C79.51 Secondary malignant neoplasm of bone; R91.1 Solitary pulmonary nodule | CPT/HCPCS: 36415 ==

== ENCOUNTER 2019-09-29 08:57 | Outpatient (RCR) | payer MEDICARE, MEDICAID, SELFPAY ==
[2019-09-29 09:14] LABS: Abs Immature Grans 0.01 k/cumm (0.0-0.09); Absolute Basophil Count 0.03 k/cumm (0.0-0.2); Absolute Eosinophil Count 0.25 k/cumm (0.0-0.7); Absolute Lymphocyte Count 1.83 k/cumm (1.2-3.4); Absolute Monocyte Count 0.55 k/cumm (0.11-0.7); Absolute Neutrophil Count 2.94 k/cumm (1.2-6.7); Basophils % 0.5; Eosinophils % 4.5; HGB 14.9 g/dL (13.5-17.5); Immature Grans % 0.2 %; Lymphocytes % 32.6; Mean Corp. HGB Concentration 33.9 g/dL (32.0-36.0); Mean Corpuscular Hemoglobin 30.5 pg (27.0-33.0); Mean Corpuscular Volume 90.2 fL (80-95); Mean Platelet Volume 9.7 fL (8.0-11.0); Monocytes % 9.8; Neutrophils % 52.4; Platelet Count 201 x1000/uL (130-400); RBC 4.88 m/cumm (4.50-6.00); RBC Distribution Width 14.4 % (11.8-14.1); White Blood Cell Count 5.61 k/cumm (4.4-10.8)
[2019-09-29 09:27] LABS: ALT 24 U/L (16-63); AST 20 U/L (15-37); Albumin 3.8 g/dL (3.4-5.0); Alkaline Phosphatase 151 U/L (46-116); BUN 14 mg/dL (7-18); Bilirubin, Total 0.6 mg/dL (0.2-1.0); CREATININE 0.75 mg/dL (0.70-1.30); Calcium 9.1 mg/dL (8.5-10.1); Chloride 104 mmol/L (98-107); Glucose 95 mg/dL (74-106); Potassium 4.3 mmol/L (3.5-5.1); Sodium 140 mmol/L (136-145); Total Protein 6.8 g/dL (6.4-8.2)
[2019-09-29 09:39] LABS: Calculated LDL 80 mg/dL (<100); Cholesterol 160 mg/dL (<200); HDL Cholesterol 61 mg/dL (40-60); Triglyceride 95 mg/dL (<150)
== END 2019-10-26 23:59 | disposition home or self-care (01) ==
LOC: INF 08:57
PROVIDERS: PCP Nurse Practitioner Family; Visit Provider Internal Medicine
DX: C61 Malignant neoplasm of prostate (principal); R93.7 Abnormal findings on diagnostic imaging of other parts of musculoskeletal system; R79.89 Other specified abnormal findings of blood chemistry
CPT/HCPCS: 36415; 80053; 80061; 84153; 85025

== ENCOUNTER 2019-11-03 02:45 | Outpatient (RCR) | payer MEDICARE, MEDICAID, SELFPAY ==
[2019-11-03 10:48] LABS: Abs Immature Grans 0.02 k/cumm (0.0-0.09); Absolute Basophil Count 0.03 k/cumm (0.0-0.2); Absolute Eosinophil Count 0.32 k/cumm (0.0-0.7); Absolute Lymphocyte Count 2.05 k/cumm (1.2-3.4); Absolute Monocyte Count 0.61 k/cumm (0.11-0.7); Absolute Neutrophil Count 4.64 k/cumm (1.2-6.7); Basophils % 0.4; Eosinophils % 4.2; HCT 42.3 % (40.0-50.0); HGB 14.5 g/dL (13.5-17.5); Immature Grans % 0.3 %; Lymphocytes % 26.7; Mean Corp. HGB Concentration 34.3 g/dL (32.0-36.0); Mean Corpuscular Hemoglobin 30.7 pg (27.0-33.0); Mean Corpuscular Volume 89.6 fL (80-95); Mean Platelet Volume 9.9 fL (8.0-11.0); Neutrophils % 60.4; Platelet Count 189 x1000/uL (130-400); RBC 4.72 m/cumm (4.50-6.00); RBC Distribution Width 13.9 % (11.8-14.1); White Blood Cell Count 7.67 k/cumm (4.4-10.8)
[2019-11-03 11:15] LABS: ALT 22 U/L (16-63); AST 21 U/L (15-37); Albumin 3.6 g/dL (3.4-5.0); Alkaline Phosphatase 138 U/L (46-116); Anion Gap 10.9 mmol/L (3-11); BUN 13 mg/dL (7-18); Bilirubin, Total 0.6 mg/dL (0.2-1.0); CO2 25.1 mmol/L (21.0-32.0); CREATININE 0.74 mg/dL (0.70-1.30); Chloride 108 mmol/L (98-107); Glucose 96 mg/dL (74-106); Potassium 4.1 mmol/L (3.5-5.1); Sodium 144 mmol/L (136-145); Total Protein 6.5 g/dL (6.4-8.2)
[2019-11-04 10:51] LABS: PSA, Diagnostic 0.1 ng/mL (0.0-4.5)
== END 2019-11-25 23:59 | disposition home or self-care (01) ==
LOC: INF 02:45
PROVIDERS: PCP Nurse Practitioner Family; Visit Provider Internal Medicine
DX: C61 Malignant neoplasm of prostate (principal)
CPT/HCPCS: 36415; 80053; 84153; 85025

== ENCOUNTER 2019-12-26 03:59 | Outpatient (RCR) | payer MEDICARE, MEDICAID, SELFPAY ==
[2019-12-01 14:23] LABS: Abs Immature Grans 0.02 k/cumm (0.0-0.09); Absolute Basophil Count 0.03 k/cumm (0.0-0.2); Absolute Eosinophil Count 0.07 k/cumm (0.0-0.7); Absolute Lymphocyte Count 1.62 k/cumm (1.2-3.4); Absolute Monocyte Count 0.48 k/cumm (0.11-0.7); Absolute Neutrophil Count 5.79 k/cumm (1.2-6.7); Basophils % 0.4; Eosinophils % 0.9; HCT 43.4 % (40.0-50.0); HGB 14.8 g/dL (13.5-17.5); Immature Grans % 0.2 %; Lymphocytes % 20.2; Mean Corp. HGB Concentration 34.1 g/dL (32.0-36.0); Mean Corpuscular Hemoglobin 31.1 pg (27.0-33.0); Mean Corpuscular Volume 91.2 fL (80-95); Mean Platelet Volume 10.3 fL (8.0-11.0); Neutrophils % 72.3; Platelet Count 208 x1000/uL (130-400); RBC 4.76 m/cumm (4.50-6.00); RBC Distribution Width 14.1 % (11.8-14.1); White Blood Cell Count 8.01 k/cumm (4.4-10.8)
[2019-12-01 14:33] LABS: ALT 20 U/L (16-63); AST 20 U/L (15-37); Alkaline Phosphatase 123 U/L (46-116); Anion Gap 6.9 mmol/L (3-11); BUN 16 mg/dL (7-18); Bilirubin, Total 0.6 mg/dL (0.2-1.0); CO2 29.1 mmol/L (21.0-32.0); CREATININE 0.83 mg/dL (0.70-1.30); Calcium 9.1 mg/dL (8.5-10.1); Chloride 106 mmol/L (98-107); Glucose 117 mg/dL (74-106); Potassium 4.3 mmol/L (3.5-5.1); Sodium 142 mmol/L (136-145)
[2019-12-02 09:11] LABS: PSA, Diagnostic 0.1 ng/mL (0.0-4.5)
[2019-12-04 11:50] LABS: Testosterone, Total <7.0 ng/dL (240-950)
[2019-12-26 09:23] LABS: Abs Immature Grans 0.02 10^3/uL (0.0-0.06); Absolute Basophil Count 0.06 10^3/uL (0.0-0.2); Absolute Eosinophil Count 0.45 10^3/uL (0.0-0.7); Absolute Lymphocyte Count 2.99 10^3/uL (1.2-3.4); Absolute Monocyte Count 0.79 10^3/uL (0.1-0.8); Absolute Neutrophil Count 3.78 10^3/uL (1.2-6.7); Basophils % 0.7; Eosinophils % 5.6; HCT 43.5 % (40.0-50.0); HGB 14.9 g/dL (13.5-17.5); Immature Grans % 0.2; MCH 31.3 pg (27.0-33.0); MCHC 34.3 % (32.0-36.0); MCV 91.4 fL (80-95); MPV 10.2 fL (8.0-11.0); Monocytes % 9.8; Neutrophils % 46.7; Platelet Count 199 10^3/uL (130-400); RBC 4.76 10^6/uL (4.36-5.78); RDW 13.2 % (11.8-14.1); RDW-SD 44.1 fL; WBC 8.09 10^3/uL (4.4-10.8)
[2019-12-26 09:38] LABS: ALT 21 U/L (16-63); AST 20 U/L (15-37); Albumin 3.9 g/dL (3.4-5.0); Alkaline Phosphatase 111 U/L (46-116); Anion Gap 10.1 mmol/L (3-11); BUN 12 mg/dL (7-18); Bilirubin, Total 0.7 mg/dL (0.2-1.0); CO2 26.9 mmol/L (21.0-32.0); CREATININE 0.79 mg/dL (0.70-1.30); Calcium 9.2 mg/dL (8.5-10.1); Chloride 106 mmol/L (98-107); Glucose 99 mg/dL (74-106); Potassium 3.8 mmol/L (3.5-5.1); Sodium 143 mmol/L (136-145); Total Protein 6.8 g/dL (6.4-8.2)
[2019-12-29 09:18] LABS: PSA, Diagnostic <0.1 ng/mL (0.0-4.5)
[2019-12-30 15:04] LABS: Testosterone, Total <7.0 ng/dL (240-950)
== END 2019-12-26 23:59 | disposition home or self-care (01) ==
LOC: INF 03:59
PROVIDERS: PCP Nurse Practitioner Family; Visit Provider Internal Medicine
DX: C61 Malignant neoplasm of prostate (principal)
CPT/HCPCS: 36415; 80053; 84403; 83735; 84153; 85025

== ENCOUNTER 2020-01-07 01:38 | Outpatient (CLI) | payer MEDICARE, MEDICAID, SELFPAY ==
--- NOTE | 2020-01-07 | DI.NM_ITS ---
EXAM: IN BONE SCAN WHOLE BODY GRP CLINICAL HISTORY: PROSTATE CA METASTATIC TO MULTIPLE SITES,C61. TECHNIQUE: Injected Dose: 25 mCi Tc-99m MDP Delayed Images: 2-3 hours. COMPARISON: [facility] BONE SCAN WHOLE BODY GRP from 08/22/2019 FINDINGS: There is activity seen in the kidneys and urinary bladder. There is stable diffuse uptake of radiotr acer consistent with osseous metastatic disease. IMPRESSION: 1. Widespread osseous metastatic disease. DATA REPOSITORY:
--- NOTE | 2020-01-07 10:50 | DI.CT_ITS ---
EXAM: CT CHEST/ABD/PEL W CLINICAL HISTORY: PROSTATE CA METASTATIC TO MULTIPLE SITES,C61 TECHNIQUE: Imaging Protocol: Axial computed tomography images with coronal and sagittal reformatted images were created and reviewed CONTRAST MATERIAL: Intravenous: Omnipaque 350 Contrast volume:100 mL Oral: Yes COMPARISON: CT CT CHEST/ABD/PEL W from 08/22/2019 FINDINGS: CHEST: Tracheobronchial tree: Patent where visualized. Mediastinum and Amy: Stable mediastinal lymph nodes. Pulmonary parenchyma: No focal consolidating infiltrates. Stable right lower lobe pulmonary nodule. No new nodules. Centrilobular and paraseptal emphysema. Pleura: No effusion or pneumothorax. Heart: The heart is not dilated. Mild coronary artery calcification. No pericardial effusion. Aorta: Thoracic aorta non-dilated. Mild atherosclerosis. Lymph nodes: Stable mediastinal lymph nodes. Bones:Widespread osseous metastatic disease. Soft tissues: Unremarkable. ABDOMEN: Liver: Normal density. No measurable mass. Portal, Superior Mesenteric, and Splenic Veins: Unremarkable. Gallbladder and Biliary Tract: No radiodense calculus or dilation. Pancreas: Normal density, no abnormal calcifications or inflammatory process. Spleen: Normal. Adrenals: No masses seen. Kidneys: Normal size, contour and axis. No radiodense stones or obstructive uropathy. No masses seen. Abdominal Aorta: Abdominal portion non-dilated. Mild atherosclerosis. Bowel: No obstruction or bowel wall thickening. Appendix is unremarkable. Small hiatal hernia. Peritoneal Cavity: No ascites, collection or mesenteric inflammatory response. Lymph Nodes: Within normal limits. Bones: Widespread osseous metastatic disease. Soft Tissues: Bilateral fat containing inguinal hernia. PELVIS: Bladder: Symmetric distention, no gross wall thickening. Reproductive Organs: Unremarkable as visualized. Lymph Nodes: Within normal limits. Bones: Widespread osseous metastatic disease. IMPRESSION: 1. Widespread osseous metastatic disease. 2. Stable pulmonary nodules. RADIATION DOSE DELIVERED: 1,547.3mGy.cm Total DLP DATA REPOSITORY: All CT scans at this facility are submitted to the National Radiology Data Registry (NRDR) Dose Index Registry (DIR) with the [employer] (ACR). RADIATION OPTIMIZATION: All CT scans at this facility use at least one of these dose optimization te chniques: automated exposure control; mA and/or kV adjustment per patient size (includes targeted exa ms where dose is matched to clinical indication); or iterative reconstruction.
[2020-01-07] MEDS: Omnipaque 350 MG/ML 100 ML BTL IJ (11:04)
[2020-01-07] MEDS: Normal Saline - Diluent 50 ML VIAL IV (11:04)
== END 2020-01-07 01:58 ==
PROVIDERS: PCP Nurse Practitioner Family; Visit Provider Nurse Practitioner Adult Health
DX: C61 Malignant neoplasm of prostate (principal); R91.8 Other nonspecific abnormal finding of lung field; C79.51 Secondary malignant neoplasm of bone
CPT/HCPCS: 74177; 78306; 71260; J3490

== ENCOUNTER 2020-02-20 04:38 | Outpatient (RCR) | payer MEDICARE, MEDICAID, SELFPAY ==
[2020-02-20 09:26] LABS: Abs Immature Grans 0.03 10^3/uL (0.0-0.06); Absolute Basophil Count 0.05 10^3/uL (0.0-0.2); Absolute Eosinophil Count 0.37 10^3/uL (0.0-0.7); Absolute Lymphocyte Count 2.27 10^3/uL (1.2-3.4); Absolute Monocyte Count 0.68 10^3/uL (0.1-0.8); Absolute Neutrophil Count 4.35 10^3/uL (1.2-6.7); Basophils % 0.6; Eosinophils % 4.8; HCT 42.7 % (40.0-50.0); HGB 14.4 g/dL (13.5-17.5); Immature Grans % 0.4; Lymphocytes % 29.3; MCH 32.6 pg (27.0-33.0); MCHC 33.7 % (32.0-36.0); MCV 96.6 fL (80-95); MPV 10.3 fL (8.0-11.0); Monocytes % 8.8; Neutrophils % 56.1; Nucleated RBC 0 %; Platelet Count 167 10^3/uL (130-400); RBC 4.42 10^6/uL (4.36-5.78); RDW-SD 46.4 fL; WBC 7.75 10^3/uL (4.4-10.8)
[2020-02-20 09:39] LABS: ALT 20 U/L (16-63); AST 16 U/L (15-37); Albumin 3.7 g/dL (3.4-5.0); Alkaline Phosphatase 108 U/L (46-116); Anion Gap 4.2 mmol/L (3-11); BUN 12 mg/dL (7-18); Bilirubin, Total 0.6 mg/dL (0.2-1.0); CO2 31.8 mmol/L (21.0-32.0); CREATININE 0.81 mg/dL (0.70-1.30); Chloride 106 mmol/L (98-107); Glucose 75 mg/dL (74-106); Potassium 3.5 mmol/L (3.5-5.1); Sodium 142 mmol/L (136-145); Total Protein 6.5 g/dL (6.4-8.2)
[2020-02-20 22:01] LABS: PSA, Diagnostic <0.1 ng/mL (0.0-4.5)
[2020-02-24 20:07] LABS: Testosterone, Total <7.0 ng/dL (240-950)
== END 2020-02-25 23:59 | disposition home or self-care (01) ==
LOC: INF 04:38
PROVIDERS: PCP Nurse Practitioner Family; Visit Provider Internal Medicine
DX: C61 Malignant neoplasm of prostate (principal); C79.89 Secondary malignant neoplasm of other specified sites; Z45.2 Encounter for adjustment and management of vascular access device
CPT/HCPCS: 36415; 80053; 84403; 84153; 85025

== ENCOUNTER 2020-05-12 01:11 | Outpatient (RCR) | payer MEDICARE, MEDICAID, SELFPAY ==
[2020-05-12 12:43] LABS: Abs Immature Grans 0.02 10^3/uL (0.0-0.06); Absolute Basophil Count 0.05 10^3/uL (0.0-0.2); Absolute Eosinophil Count 0.07 10^3/uL (0.0-0.7); Absolute Neutrophil Count 5.57 10^3/uL (1.2-6.7); Basophils % 0.6; Eosinophils % 0.9; HCT 43.1 % (40.0-50.0); HGB 14.4 g/dL (13.5-17.5); Immature Grans % 0.3; Lymphocytes % 19.5; MCH 32.2 pg (27.0-33.0); MCHC 33.4 % (32.0-36.0); MCV 96.4 fL (80-95); MPV 10.2 fL (8.0-11.0); Monocytes % 6.5; Neutrophils % 72.2; Nucleated RBC 0 %; Platelet Count 177 10^3/uL (130-400); RBC 4.47 10^6/uL (4.36-5.78); RDW 12.4 % (11.8-14.1); RDW-SD 43.8 fL; WBC 7.71 10^3/uL (4.4-10.8)
[2020-05-12 12:59] LABS: ALT 15 U/L (16-63); AST 13 U/L (15-37); Albumin 3.9 g/dL (3.4-5.0); Alkaline Phosphatase 109 U/L (46-116); Anion Gap 4.6 mmol/L (3-11); BUN 13 mg/dL (7-18); Bilirubin, Total 0.6 mg/dL (0.2-1.0); CO2 29.4 mmol/L (21.0-32.0); CREATININE 0.87 mg/dL (0.70-1.30); Calcium 9.1 mg/dL (8.5-10.1); Chloride 105 mmol/L (98-107); Glucose 104 mg/dL (74-106); Potassium 3.8 mmol/L (3.5-5.1); Sodium 139 mmol/L (136-145); Total Protein 6.9 g/dL (6.4-8.2)
[2020-05-14 10:16] LABS: PSA, Ultrasensitive 0.03 ng/mL (<= 4.5)
[2020-05-16 17:01] LABS: Testosterone, Total <7.0 ng/dL (240-950)
== END 2020-05-27 23:59 | disposition home or self-care (01) ==
LOC: INF 01:11
PROVIDERS: Nurse Practitioner Adult Health; PCP Nurse Practitioner Family; Visit Provider Internal Medicine
DX: C61 Malignant neoplasm of prostate (principal)
CPT/HCPCS: 36415; 80053; 84153; 84403; 85025

== ENCOUNTER 2020-05-31 13:54 | Outpatient (REF) | payer MEDICARE, MEDICAID, SELFPAY ==
[2020-05-31 17:21] LABS: Anion Gap 7.3 mmol/L (3-11); BUN 13 mg/dL (7-18); CO2 28.7 mmol/L (21.0-32.0); CREATININE 0.87 mg/dL (0.70-1.30); Calcium 9.3 mg/dL (8.5-10.1); Chloride 106 mmol/L (98-107); Glucose 89 mg/dL (74-106); Potassium 4.2 mmol/L (3.5-5.1); Sodium 142 mmol/L (136-145)
== END 2020-05-31 14:14 ==
LOC: NCHCN 13:54
PROVIDERS: PCP Nurse Practitioner Family; Visit Provider Nurse Practitioner Family
DX: R03.0 Elevated blood-pressure reading, without diagnosis of hypertension (principal)
CPT/HCPCS: 80048

== ENCOUNTER 2020-06-08 10:42 | Outpatient (CLI) | payer MEDICARE, MEDICAID, SELFPAY ==
--- NOTE | 2020-06-08 16:15 | DI.RAD_ITS ---
EXAM: XR RIBS RT W PA LAT CHEST CLINICAL HISTORY: BACK PAIN THORACIC REGION RT M54.6, R/O RT LOWER RIB FX IN PT W/ HX BONE. TECHNIQUE: 2D digital imaging was performed. COMPARISON: Prior chest CT scan March 2019 FINDINGS: Heart size is normal. Mediastinum is not widened. There are no confluent pulmonary infiltrates nor pleural effusions evident on the conventional plain film of chest but there is slightly increased mar kings in lung bases evident on the rib images. There is a subtle fracture of the right 9th rib. Pat ient has known blastic metastases from prostate malignancy. No other rib fractures identified. Also appear to be blastic lesions in the bones of the pelvis and lumbar spine. IMPRESSION: 1. Subtle right 9th rib fracture. Blastic osseous metastases, previously documented. 2. Subtle suggestion of lung infiltrates on the rib images, this within the right lung field. No ob vious pleural effusions. DATA REPOSITORY: RADIATION DOSE DELIVERED:
--- NOTE | 2020-06-08 16:32 | DI.VRAD_ITS ---
PROCEDURE INFORMATION: Exam: XR Right Ribs Exam date and time: 06/08/2020 4:04 PM Age: 69 years old Clinical indication: Other: Back pain thoracic region RT, R/O RT lower rib FX in PT w/hx bone mets after falling down stairs TECHNIQUE: Imaging protocol: XR Right ribs. Views: 2 views. COMPARISON: CT CHEST/ABD/PEL W 01/07/2020 10:40 AM FINDINGS: Bones/joints: Blastic metastasis involving the 9th rib. No pathological fracture. Soft tissues: Normal. IMPRESSION: Blastic metastasis. PROCEDURE INFORMATION: Exam: XR Chest, 2 Views Exam date and time: 06/08/2020 4:04 PM Age: 69 years old Clinical indication: Other: Back pain thoracic region RT, R/O RT lower rib FX in PT w/hx bone mets after falling down stairs TECHNIQUE: Imaging protocol: XR of the chest Views: 2 views. COMPARISON: CT CHEST/ABD/PEL W 01/07/2020 10:40 AM FINDINGS: Lungs: Unremarkable. No consolidation. Pleural space: Unremarkable. No pleural effusion. No pneumothorax. Heart/Mediastinum: Unremarkable. No cardiomegaly. Bones/joints: Diffuse blastic metastasis. IMPRESSION: 1. No acute findings. 2. Known blastic metastasis Dictated and Authenticated by: Shlomo Manley MD. Ordering:GUALBERTO Nunn MD
== END 2020-06-08 11:02 ==
PROVIDERS: PCP Nurse Practitioner Family; Visit Provider Nurse Practitioner Family
DX: R91.8 Other nonspecific abnormal finding of lung field (principal); S22.31XA Fracture of one rib, right side, initial encounter for closed fracture
CPT/HCPCS: 71046; 71100

== ENCOUNTER 2020-06-14 17:30 | Outpatient (REF) | payer MEDICARE, MEDICAID, SELFPAY ==
[2020-06-14 15:54] LABS: BUN 14 mg/dL (7-18); CREATININE 0.76 mg/dL (0.70-1.30); Calcium 9.1 mg/dL (8.5-10.1); Chloride 107 mmol/L (98-107); Glucose 87 mg/dL (74-106); Potassium 4.2 mmol/L (3.5-5.1); Sodium 142 mmol/L (136-145)
== END 2020-06-14 17:50 ==
LOC: NCHCN 17:30
PROVIDERS: PCP Nurse Practitioner Family; Visit Provider Nurse Practitioner Family
DX: I10 Essential (primary) hypertension (principal)
CPT/HCPCS: 80048

== ENCOUNTER 2020-08-06 05:02 | Outpatient (RCR) | payer MEDICARE, MEDICAID, SELFPAY ==
[2020-08-06 10:41] LABS: Abs Immature Grans 0.03 10^3/uL (0.0-0.06); Absolute Basophil Count 0.05 10^3/uL (0.0-0.2); Absolute Eosinophil Count 0.22 10^3/uL (0.0-0.7); Absolute Lymphocyte Count 2.75 10^3/uL (1.2-3.4); Absolute Monocyte Count 0.68 10^3/uL (0.1-0.8); Absolute Neutrophil Count 4.34 10^3/uL (1.2-6.7); Basophils % 0.6; Eosinophils % 2.7; HCT 42.5 % (40.0-50.0); HGB 14.5 g/dL (13.5-17.5); Immature Grans % 0.4; Lymphocytes % 34.1; MCH 32.8 pg (27.0-33.0); MCHC 34.1 % (32.0-36.0); MCV 96.2 fL (80-95); Monocytes % 8.4; Neutrophils % 53.8; Nucleated RBC 0 %; Platelet Count 187 10^3/uL (130-400); RBC 4.42 10^6/uL (4.36-5.78); RDW 12.1 % (11.8-14.1); WBC 8.07 10^3/uL (4.4-10.8)
[2020-08-06 10:54] LABS: ALT 22 U/L (16-63); AST 15 U/L (15-37); Albumin 3.9 g/dL (3.4-5.0); Alkaline Phosphatase 101 U/L (46-116); Anion Gap 8.5 mmol/L (3-11); BUN 11 mg/dL (7-18); Bilirubin, Total 0.6 mg/dL (0.2-1.0); CO2 29.5 mmol/L (21.0-32.0); CREATININE 0.8 mg/dL (0.70-1.30); Calcium 9.3 mg/dL (8.5-10.1); Chloride 106 mmol/L (98-107); Glucose 99 mg/dL (74-106); Potassium 3.9 mmol/L (3.5-5.1); Sodium 144 mmol/L (136-145); Total Protein 7.1 g/dL (6.4-8.2)
[2020-08-08 17:10] LABS: Testosterone, Total <7.0 ng/dL (240-950)
[2020-08-09 10:50] LABS: PSA, Ultrasensitive 0.03 ng/mL (<= 6.5)
== END 2020-08-25 23:59 | disposition home or self-care (01) ==
LOC: INF 05:02
PROVIDERS: Nurse Practitioner Adult Health; PCP Nurse Practitioner Family; Visit Provider Internal Medicine Hematology & Oncology
DX: C61 Malignant neoplasm of prostate (principal); C79.51 Secondary malignant neoplasm of bone
CPT/HCPCS: 36415; 80053; 84153; 84403; 85025

== ENCOUNTER 2020-11-05 03:27 | Outpatient (RCR) | payer MEDICARE, MEDICAID, SELFPAY ==
[2020-11-05 09:19] LABS: Abs Immature Grans 0.03 10^3/uL (0.0-0.06); Absolute Basophil Count 0.02 10^3/uL (0.0-0.2); Absolute Eosinophil Count 0.13 10^3/uL (0.0-0.7); Absolute Lymphocyte Count 1.17 10^3/uL (1.2-3.4); Absolute Monocyte Count 0.47 10^3/uL (0.1-0.8); Basophils % 0.2; Eosinophils % 1.6; HCT 43.6 % (40.0-50.0); HGB 14.6 g/dL (13.5-17.5); Immature Grans % 0.4; Lymphocytes % 14.6; MCH 32.2 pg (27.0-33.0); MCHC 33.5 % (32.0-36.0); MPV 10.1 fL (8.0-11.0); Monocytes % 5.9; Neutrophils % 77.3; Nucleated RBC 0 %; Platelet Count 202 10^3/uL (130-400); RBC 4.54 10^6/uL (4.36-5.78); RDW 12.3 % (11.8-14.1); RDW-SD 43.3 fL; WBC 8.02 10^3/uL (4.4-10.8)
[2020-11-05 09:58] LABS: ALT 22 U/L (16-63); AST 19 U/L (15-37); Albumin 3.9 g/dL (3.4-5.0); Alkaline Phosphatase 116 U/L (46-116); Anion Gap 7.2 mmol/L (3-11); BUN 13 mg/dL (7-18); Bilirubin, Total 0.7 mg/dL (0.2-1.0); CO2 29.8 mmol/L (21.0-32.0); CREATININE 0.8 mg/dL (0.70-1.30); Chloride 108 mmol/L (98-107); Glucose 79 mg/dL (74-106); Potassium 4.1 mmol/L (3.5-5.1); Sodium 145 mmol/L (136-145); Total Protein 6.8 g/dL (6.4-8.2)
[2020-11-06 12:34] LABS: PSA, Ultrasensitive 0.03 ng/mL (<= 6.5)
[2020-11-10 09:26] LABS: Testosterone, Total <7.0 ng/dL (240-950)
== END 2020-11-24 23:59 | disposition home or self-care (01) ==
LOC: INF 03:27
PROVIDERS: PCP Nurse Practitioner Family; Visit Provider Nurse Practitioner Adult Health
DX: C79.51 Secondary malignant neoplasm of bone (principal); C61 Malignant neoplasm of prostate
CPT/HCPCS: 36415; 80053; 84153; 84403; 85025

== ENCOUNTER 2021-02-11 04:46 | Outpatient (RCR) | payer MEDICARE, MEDICAID, SELFPAY ==
[2021-02-11 10:26] LABS: Abs Immature Grans 0.03 10^3/uL (0.0-0.06); Absolute Basophil Count 0.05 10^3/uL (0.0-0.2); Absolute Eosinophil Count 0.04 10^3/uL (0.0-0.7); Absolute Lymphocyte Count 1.05 10^3/uL (1.2-3.4); Absolute Monocyte Count 0.54 10^3/uL (0.1-0.8); Absolute Neutrophil Count 6.17 10^3/uL (1.2-6.7); Basophils % 0.6; Eosinophils % 0.5; HCT 41.2 % (40.0-50.0); HGB 13.7 g/dL (13.5-17.5); Immature Grans % 0.4; Lymphocytes % 13.3; MCH 32.2 pg (27.0-33.0); MCHC 33.3 % (32.0-36.0); MCV 96.9 fL (80-95); MPV 10.3 fL (8.0-11.0); Monocytes % 6.9; Neutrophils % 78.3; Nucleated RBC 0 %; Platelet Count 202 10^3/uL (130-400); RBC 4.25 10^6/uL (4.36-5.78); RDW 12.3 % (11.8-14.1); RDW-SD 43.8 fL; WBC 7.88 10^3/uL (4.4-10.8)
[2021-02-11 10:49] LABS: ALT 23 U/L (16-63); AST 20 U/L (15-37); Alkaline Phosphatase 117 U/L (46-116); Anion Gap 8.5 mmol/L (3-11); BUN 15 mg/dL (7-18); Bilirubin, Total 0.7 mg/dL (0.2-1.0); CO2 27.5 mmol/L (21.0-32.0); CREATININE 0.8 mg/dL (0.70-1.30); Chloride 107 mmol/L (98-107); Glucose 108 mg/dL (74-106); Potassium 4.1 mmol/L (3.5-5.1); Sodium 143 mmol/L (136-145)
[2021-02-14 15:35] LABS: PSA, Ultrasensitive 0.04 ng/mL (<= 6.5)
[2021-02-16 11:24] LABS: Testosterone, Total <7.0 ng/dL (240-950)
== END 2021-02-24 23:59 | disposition home or self-care (01) ==
LOC: INF 04:46
PROVIDERS: PCP Nurse Practitioner Family; Visit Provider Nurse Practitioner Adult Health
DX: C61 Malignant neoplasm of prostate (principal); C79.89 Secondary malignant neoplasm of other specified sites
CPT/HCPCS: 36415; 80053; 84153; 84403; 85025

== ENCOUNTER 2021-05-06 00:44 | Outpatient (RCR) | payer MEDICARE, MEDICAID, SELFPAY ==
[2021-05-06 09:33] LABS: Abs Immature Grans 0.02 10^3/uL (0.0-0.06); Absolute Basophil Count 0.04 10^3/uL (0.0-0.2); Absolute Eosinophil Count 0.19 10^3/uL (0.0-0.7); Absolute Lymphocyte Count 1.91 10^3/uL (1.2-3.4); Absolute Monocyte Count 0.73 10^3/uL (0.1-0.8); Absolute Neutrophil Count 4.25 10^3/uL (1.2-6.7); Basophils % 0.6; Eosinophils % 2.7; HCT 42.8 % (40.0-50.0); HGB 14.1 g/dL (13.5-17.5); Immature Grans % 0.3; Lymphocytes % 26.8; MCH 32.1 pg (27.0-33.0); MCHC 32.9 % (32.0-36.0); MCV 97.5 fL (80-95); MPV 10.6 fL (8.0-11.0); Monocytes % 10.2; Neutrophils % 59.4; Nucleated RBC 0 %; Platelet Count 178 10^3/uL (130-400); RBC 4.39 10^6/uL (4.36-5.78); RDW 12.4 % (11.8-14.1); RDW-SD 44.9 fL; WBC 7.14 10^3/uL (4.4-10.8)
[2021-05-06 09:54] LABS: ALT 23 U/L (16-63); AST 20 U/L (15-37); Albumin 3.9 g/dL (3.4-5.0); Alkaline Phosphatase 110 U/L (46-116); BUN 16 mg/dL (7-18); Bilirubin, Total 0.5 mg/dL (0.2-1.0); CREATININE 0.9 mg/dL (0.70-1.30); Calcium 9.1 mg/dL (8.5-10.1); Chloride 106 mmol/L (98-107); Glucose 81 mg/dL (74-106); Sodium 144 mmol/L (136-145); Total Protein 6.9 g/dL (6.4-8.2)
[2021-05-09 20:59] LABS: PSA, Ultrasensitive 0.06 ng/mL (<= 6.5)
[2021-05-12 15:30] LABS: Testosterone, Total <7.0 ng/dL (240-950)
== END 2021-05-27 23:59 | disposition home or self-care (01) ==
LOC: INF 00:44
PROVIDERS: Nurse Practitioner Adult Health; PCP Nurse Practitioner Family; Visit Provider Internal Medicine Hematology & Oncology
DX: C61 Malignant neoplasm of prostate (principal); Z79.818 Long term (current) use of other agents affecting estrogen receptors and estrogen levels
CPT/HCPCS: 36415; 80053; 84153; 84403; 85025

== ENCOUNTER 2021-05-17 10:02 | Outpatient (CLI) | payer MEDICARE, MEDICAID, SELFPAY ==
--- NOTE | 2021-05-17 | DI.RAD_ITS ---
Exam(s) XR RIBS RT W PA LAT CHEST EXAM: XR RIBS RT W PA LAT CHEST CLINICAL HISTORY: RT-SIDED RIB PAIN, R07.81; METASTATIC PROSTATE CA, BLASTIC DISEASE TECHNIQUE: 2D digital imaging was performed. COMPARISON: NM NM BONE SCAN WHOLE BODY GRP from 01/07/2020 NM NM BONE SCAN WHOLE BODY GRP from 01/07/2020 CR,XR XR RIBS RT W PA LAT CHEST from 06/08/2020 FINDINGS: MEDIASTINUM: Normal. HEART: Normal. PULMONARY VASCULATURE: Normal. LUNGS: Clear. PLEURAL SPACE: No pleural effusion or pneumothorax. BONE:The patient has history of diffuse osseous metastatic disease. No acute fracture is identified. Degenerative changes are seen throughout the spine. RIGHT RIBS: No displaced rib fractures are identified. OTHER FINDINGS:Normal. IMPRESSION: 1. No acute pulmonary findings. 2. No acute displaced right rib fracture. DATA REPOSITORY: RADIATION DOSE DELIVERED:
== END 2021-05-17 10:22 ==
PROVIDERS: PCP Nurse Practitioner Family; Visit Provider Nurse Practitioner Family
DX: R07.81 Pleurodynia (principal)
CPT/HCPCS: 71046; 71100

== ENCOUNTER 2021-05-30 15:10 | Outpatient (REF) | payer MEDICARE, MEDICAID, SELFPAY ==
[2021-05-30 14:34] LABS: Anion Gap 9.4 mmol/L (3-11); BUN 15 mg/dL (7-18); CO2 28.6 mmol/L (21.0-32.0); CREATININE 0.8 mg/dL (0.70-1.30); Calcium 9.5 mg/dL (8.5-10.1); Chloride 104 mmol/L (98-107); Glucose 102 mg/dL (74-106); Potassium 4.7 mmol/L (3.5-5.1); Sodium 142 mmol/L (136-145)
== END 2021-05-30 15:11 | disposition home or self-care (01) ==
LOC: NCHCN 15:10
PROVIDERS: PCP Nurse Practitioner Family; Visit Provider Nurse Practitioner Family
DX: I10 Essential (primary) hypertension (principal)
CPT/HCPCS: 80048

== ENCOUNTER 2021-06-01 02:05 | Outpatient (CLI) | payer MEDICARE, MEDICAID, SELFPAY ==
--- NOTE | 2021-06-01 13:00 | DI.CT_ITS ---
Exam(s) CT ABDOMEN PELVIS W EXAM: CT ABDOMEN PELVIS W CLINICAL HISTORY: RT FLANK PAIN, R10.9; SUPRAPUBIC PAIN; H/O METASTATIC PROSTATE CA TECHNIQUE: COMPARISON: CT CT CHEST/ABD/PEL W from 01/07/2020 FINDINGS: CT examination of the abdomen and pelvis was performed prior to and following bolus infusion of 100 c c of Omnipaque 350. Oral contrast was administered as well. Images obtained through the lung bases show a stable 5 millimeter in diameter noncalcified right lowe r lobe pulmonary nodule laterally. No change from CT of December 2019.. The liver appears normal with no evidence of a focal mass except for very tiny low-attenuation foci t oo small to characterize but likely representing cysts. Spleen is unremarkable in appearance.. Gallbladder and bile ducts are unremarkable. Pancreas is unremarkable in appearance. Adrenals appear normal bilaterally. Kidneys appear normal with no evidence of renal mass, hydronephrosis, or nephrolithiasis. Probable s mall left upper pole renal cortical scar. Unremarkable bladder. There is no evidence of abdominal or pelvic adenopathy. Abdominal aorta is of normal diameter and no abnormality is seen involving major visceral branches.. Appendix is normal. No evidence diverticulitis or bowel obstruction. No significant abdominal wall hernia seen. There is diffuse osseous bony metastasis as noted on prior CT of December 2019 Impression: No evidence of acute process. Widespread osseous metastases appear grossly unchanged from December 0. No additional evidence of metastatic disease .. RADIATION DOSE DELIVERED: 1,171.15mGy.cm Total DLP 1,171.15mGy.cm Total DLP 15.54mGy CTDIvol DATA REPOSITORY: All CT scans at this facility are submitted to the National Radiology Data Registry (NRDR) Dose Index Registry (DIR) with the [employer] (ACR). RADIATION OPTIMIZATION: All CT scans at this facility use at least one of these dose optimization te chniques: automated exposure control; mA and/or kV adjustment per patient size (includes targeted exa ms where dose is matched to clinical indication); or iterative reconstruction.
[2021-06-01] MEDS: Omnipaque 350 MG/ML 100 ML BTL IJ (13:19)
== END 2021-06-01 02:25 ==
PROVIDERS: PCP Nurse Practitioner Family; Visit Provider Nurse Practitioner Family
DX: R10.31 Right lower quadrant pain (principal); C79.51 Secondary malignant neoplasm of bone; Z85.46 Personal history of malignant neoplasm of prostate
CPT/HCPCS: 74177; J3490

== ENCOUNTER 2021-07-26 01:46 | Outpatient (RCR) | payer MEDICARE, MEDICAID, SELFPAY ==
[2021-07-26 10:56] LABS: Abs Immature Grans 0.02 10^3/uL (0.0-0.06); Absolute Basophil Count 0.06 10^3/uL (0.0-0.2); Absolute Eosinophil Count 0.23 10^3/uL (0.0-0.7); Absolute Lymphocyte Count 2.27 10^3/uL (1.2-3.4); Absolute Neutrophil Count 4.54 10^3/uL (1.2-6.7); Basophils % 0.8; Eosinophils % 2.9; HCT 41.8 % (40.0-50.0); HGB 13.9 g/dL (13.5-17.5); Immature Grans % 0.3; MCH 32.3 pg (27.0-33.0); MCHC 33.3 % (32.0-36.0); MPV 10.2 fL (8.0-11.0); Nucleated RBC 0 %; Platelet Count 192 10^3/uL (130-400); RBC 4.31 10^6/uL (4.36-5.78); RDW 12.3 % (11.8-14.1); RDW-SD 44.2 fL; WBC 7.82 10^3/uL (4.4-10.8)
[2021-07-26 11:10] LABS: ALT 10 U/L (16-63); AST 12 U/L (15-37); Albumin 3.8 g/dL (3.4-5.0); Alkaline Phosphatase 112 U/L (46-116); Anion Gap 5.8 mmol/L (3-11); BUN 12 mg/dL (7-18); Bilirubin, Total 0.4 mg/dL (0.2-1.0); CO2 29.2 mmol/L (21.0-32.0); CREATININE 0.8 mg/dL (0.70-1.30); Calcium 9.1 mg/dL (8.5-10.1); Chloride 105 mmol/L (98-107); Glucose 98 mg/dL (74-106); Potassium 4.2 mmol/L (3.5-5.1); Sodium 140 mmol/L (136-145)
[2021-07-28 10:07] LABS: PSA, Ultrasensitive 0.12 ng/mL (<= 6.5)
[2021-07-29 16:00] LABS: Testosterone, Total <7.0 ng/dL (240-950)
== END 2021-08-25 23:59 | disposition home or self-care (01) ==
LOC: INF 01:46
PROVIDERS: PCP Nurse Practitioner Family; Visit Provider Internal Medicine
DX: C61 Malignant neoplasm of prostate (principal)
CPT/HCPCS: 36415; 80053; 84153; 84403; 85025

== ENCOUNTER 2021-10-25 09:23 | Outpatient (RCR) | payer MEDICARE, MEDICAID, SELFPAY ==
[2021-10-25 14:29] LABS: Abs Immature Grans 0.03 10^3/uL (0.0-0.06); Absolute Basophil Count 0.04 10^3/uL (0.0-0.2); Absolute Eosinophil Count 0.08 10^3/uL (0.0-0.7); Absolute Lymphocyte Count 1.04 10^3/uL (1.2-3.4); Absolute Neutrophil Count 6.72 10^3/uL (1.2-6.7); Basophils % 0.5; HCT 41.5 % (40.0-50.0); HGB 13.9 g/dL (13.5-17.5); Immature Grans % 0.4; Lymphocytes % 12.7; MCHC 33.5 % (32.0-36.0); MCV 96 fL (80-95); MPV 10.8 fL (8.0-11.0); Monocytes % 3.7; Neutrophils % 81.7; Platelet Count 191 10^3/uL (130-400); RBC 4.34 10^6/uL (4.36-5.78); RDW 12.1 % (11.8-14.1); RDW-SD 42.1 fL; WBC 8.21 10^3/uL (4.4-10.8)
[2021-10-25 15:18] LABS: ALT 22 U/L (16-63); AST 18 U/L (15-37); Albumin 3.8 g/dL (3.4-5.0); Alkaline Phosphatase 124 U/L (46-116); Anion Gap 10.8 mmol/L (3-11); BUN 12 mg/dL (7-18); Bilirubin, Total 0.5 mg/dL (0.2-1.0); CO2 24.2 mmol/L (21.0-32.0); CREATININE 0.9 mg/dL (0.70-1.30); Calcium 8.9 mg/dL (8.5-10.1); Calculated LDL 82 mg/dL (<100); Chloride 108 mmol/L (98-107); Cholesterol 175 mg/dL (<200); Glucose 175 mg/dL (74-106); HDL Cholesterol 51 mg/dL (40-60); Potassium 3.9 mmol/L (3.5-5.1); Sodium 143 mmol/L (136-145); Total Protein 6.9 g/dL (6.4-8.2); Triglyceride 212 mg/dL (<150)
[2021-10-26 12:13] LABS: PSA, Ultrasensitive 0.29 ng/mL (<= 6.5)
[2021-10-27 16:15] LABS: Testosterone, Total <7.0 ng/dL (240-950)
== END 2021-10-25 23:59 | disposition home or self-care (01) ==
LOC: INF 09:23
PROVIDERS: Nurse Practitioner Adult Health; PCP Nurse Practitioner Family; Visit Provider Internal Medicine
DX: I10 Essential (primary) hypertension (principal); C61 Malignant neoplasm of prostate
CPT/HCPCS: 36415; 80053; 80061; 84153; 84403; 85025

== ENCOUNTER → 2021-12-13 00:20 | Outpatient (CLI) | payer MEDICARE, MEDICAID, SELFPAY ==
--- NOTE | 2021-12-13 06:45 | DI.MRI_ITS ---
Exam(s) MR IAC BRAIN WO/W EXAM: MR IAC BRAIN WO/W CLINICAL HISTORY: Asymmetric hearing loss, tinnitus umer, H90.3, H93.13 TECHNIQUE: Multiplanar multisequence MRI of the brain was performed. Both noninfused and contrast i nfused sequences were performed. IV Contrast injected was 18 cc Dotarem. COMPARISON: No exams were available for comparison FINDINGS: IAC'S: There are no masses in the cerebellopontine angles and there is no evidence of intra canalicul ar acoustic neuroma-schwannoma. CEREBRAL PARENCHYMA: No evidence of intracranial hemorrhage, mass effect nor shift of midline structu re. No extraaxial fluid collections. Ventricles are not enlarged nor shifted. There is no significant focal signal abnormality in the cerebellar hemispheres nor within the cyrus, m idbrain, and thalami. On FLAIR imaging there are few tiny bilateral white matter foci of increased signal. These are not a ssociated with hemorrhage or surrounding edema nor abnormal signal on DWI. No restricted diffusion evident on diffusion imaging. There are no ring enhancing lesions in the brain. There is no abnormal meningeal enhancement. PITUITARY GLAND: No mass nor parasellar abnormality. No obvious abnormality in the cavernous sinuses. FLOW VOIDS: The expected flow void are noted. No evidence of obvious aneurysm nor obvious vascular ma lformation. PARANASAL SINUSES: The visualized paranasal sinuses appear unremarkable. ORBITS: No obvious abnormal findings. IMPRESSION: 1. No evidence for mass in the cerebellopontine angles nor evidence of intra canalicular acoustic margaret angy-schwannoma. 2. No abnormal enhancing intracranial finding. 3. There are multiple nonspecific FLAIR bright foci of white matter signal abnormality, not associat ed with hemorrhage or surrounding edema nor restricted diffusion on DWI. Recommend follow-up MRI in 6 months DATA REPOSITORY:
[2021-12-13] MEDS: Normal Saline Flush 10 ML SYR IVP (08:40)
[2021-12-13] MEDS: Gadoterate meglumine 20 ML SYRINGE IVP (08:40)
== END ==
PROVIDERS: PCP Nurse Practitioner Family; Visit Provider Registered Nurse Maternal Newborn
DX: H90.3 Sensorineural hearing loss, bilateral (principal); H93.13 Tinnitus, bilateral; R90.89 Other abnormal findings on diagnostic imaging of central nervous system
CPT/HCPCS: 70553

== ENCOUNTER → 2022-01-18 02:04 | Outpatient (CLI) | payer MEDICARE, MEDICAID, SELFPAY ==
[2022-01-18 09:56] LABS: ALT 20 U/L (16-63); AST 17 U/L (15-37); Albumin 3.7 g/dL (3.4-5.0); Alkaline Phosphatase 125 U/L (46-116); Anion Gap 7.4 mmol/L (3-11); BUN 12 mg/dL (7-18); Bilirubin, Total 0.6 mg/dL (0.2-1.0); CO2 30.6 mmol/L (21.0-32.0); CREATININE 0.7 mg/dL (0.70-1.30); Calcium 9.1 mg/dL (8.5-10.1); Chloride 105 mmol/L (98-107); Glucose 98 mg/dL (74-106); Potassium 3.6 mmol/L (3.5-5.1); Sodium 143 mmol/L (136-145)
--- NOTE | 2022-01-18 10:00 | DI.NM_ITS ---
Exam(s) [place] BONE SCAN WHOLE BODY GRP EXAM: [place] BONE SCAN WHOLE BODY GRP CLINICAL HISTORY: PROSTATE CANCER METS MULTIPLE SITES C61. TECHNIQUE: Injected Dose: 25 mCi Tc-99m MDP Delayed Images: 2-3 hours. COMPARISON: [facility] BONE SCAN WHOLE BODY GRP from 01/07/[address] CHEST/ABD/PEL W from 01/18/2022 FINDINGS: Somewhat mottled appearance of both rib cages most probably related to the prior no known metastatic osseous disease. This is subtle. There is a focus of new increased radiopharmaceutical uptake seen in the right side of the midthoraci c spine at approximately T7 level this, however, may be related to the prominent bridging osteophyte which is evident at this level on today's CT scan. There is a small focus uptake seen in the lateral aspect of the right knee, probably degenerative. IMPRESSION: 1. Focus of increased radiopharmaceutical activity seen in the right-side of T7 level, laterally. I suspect that this may be related to a prominent osteophyte at this level. 2.. Please note that today's CT scan reveals multilevel blastic skeletal metastases which do not exh ibit significant radiopharmaceutical uptake on the whole body nuclear bone scan today. The somewhat mottled appearance of the rib cages on today's nuclear scan is commensurate with lesions as seen on C T scan. DATA REPOSITORY:
[2022-01-18] MEDS: Barium Sulfate 2% W/V-Creamy Vanilla Smoothie 450 ML BTL 900 ML PO (10:01)
--- NOTE | 2022-01-18 11:00 | DI.CT_ITS ---
Exam(s) CT CHEST/ABD/PEL W EXAM: CT CHEST/ABD/PEL W CLINICAL HISTORY: PROSTATE CANCER METS MULTIPLE SITES C61. TECHNIQUE: Imaging Protocol: Axial computed tomography images with coronal and sagittal reformatted images were created and reviewed CONTRAST MATERIAL: Intravenous: Omnipaque 350 Contrast volume:100 ml Oral: None COMPARISON: CT CT CHEST W from 04/03/[address] CHEST/ABD/PEL W from 01/07/[address] ABDOMEN PELVIS W from 06/01/2021 FINDINGS: CHEST: LUNGS: In the right lower lobe there is a noncalcified 4 millimeter nodule (series 4 image/image 37). This is unchanged from previous CT scan of December 2019 and therefore benign. No new right lung fin dings. No pleural effusion.. In the opposite-left lung there is a tiny 2 millimeter unchanged nodule in the lateral basal segment of the left lower lobe, subpleural location. No new left lower lobe findings. In the left upper lob e there is a subpleural infiltrate which has increased in size from prior CT scan of March 2019 an d December 2019. This requires close follow-up. No pleural effusion. No new findings in trachea and mainstem bronchi. MEDIASTINUM: No new hilar nor mediastinal adenopathy. Both hilar regions appear unchanged from 2019 as do small subcarinal lymph nodes. Visualized thyroid unremarkable. CARDIAC: Heart size is normal. There is no pericardial effusion.Caliber of the thoracic aorta is wit hin normal limits. OSSEOUS: Widespread osseous blastic metastatic disease again noted. ABDOMEN: No ascites LIVER: Small 3 millimeter hypodensity in the upper right hepatic lobe is unchanged. Benign appearanc e probably cyst or small hemangioma. There are no metastatic appearing liver lesions. GALLBLADDER/BILIARY: No obvious gallbladder pathology. CBD is not dilated. PANCREAS: No evidence of pancreatic mass nor dilatation of the pancreatic duct. SPLEEN: Spleen is not enlarged. There are no intrasplenic lesions. Splenic and portal veins are johnson nt. ADRENALS: There are no significant adrenal masses. KIDNEYS: No calculi nor hydronephrosis. No solid renal masses. Continued stable appearance of what ap pears to be probable cortical scarring in the superior pole region left kidney. No ominous renal mas ses. No calculi. No hydronephrosis. ABDOMINAL AORTA: Abdominal aorta is not enlarged. LYMPH NODES: There is no retroperitoneal nor paraaortic adenopathy. ABDOMINAL WALL: No evidence of significant anterior abdominal wall nor inguinal hernia. GI: There is no evidence of bowel obstruction. PELVIS: LYMPH NODES: There is no intrapelvic nor inguinal adenopathy. GI: No evidence of appendicitis.No evidence of diverticulitis.Focal circumferential narrowing of the upper rectum anterior to the sacrum (series 11/image 67). There is possibly that this is just relate d to peristalsis during image acquisition. This is over an area of 1.5 cm. URINARY BLADDER: Uniformly thickened bladder wall. No calculi therein. No diverticuli. REPRODUCTIVE: Prostate gland is not enlarged. There is no obturator adenopathy. Seminal vesicles un remarkable. No adenopathy around the aortic bifurcation nor along the iliac chains and there is no i nguinal adenopathy. OSSEOUS: Diffuse blastic metastatic disease again noted. No fractures. No encroachment upon the spi nal canal. IMPRESSION: 1. Compared to prior CT scans listed above the only new finding in the chest is slight increase in si ze of a subpleural left upper lobe infiltrate which requires follow-up to rule out developing maligna ncy. There are no pleural effusions. No new intrathoracic adenopathy. 2. Stable cortical scarring in the upper pole region of the left kidney, unchanged from yes. No new renal findings. No hydronephrosis nor hydroureter. Uniformly thickened urinary bladder wall. No di verticuli in the bladder. Prostate size remains normal. Seminal vesicles unremarkable. 3. Diffuse blastic metastatic skeletal disease again noted. Appears relatively stable. No fractures and no encroachment upon the spinal canal. RADIATION DOSE DELIVERED: 1,626.16mGy.cm Total DLP DATA REPOSITORY: All CT scans at this facility are submitted to the National Radiology Data Registry (NRDR) Dose Index Registry (DIR) with the [employer] (A[employer]). RADIATION OPTIMIZATION: All CT scans at this facility use at least one of these dose optimization te chniques: automated exposure control; mA and/or kV adjustment per patient size (includes targeted exa ms where dose is matched to clinical indication); or iterative reconstruction.
[2022-01-18] MEDS: Omnipaque 350 MG/ML 100 ML BTL IV (11:27)
== END ==
PROVIDERS: PCP Nurse Practitioner Family; Visit Provider Nurse Practitioner Family
DX: C61 Malignant neoplasm of prostate (principal)
CPT/HCPCS: 74177; 78306; 80053; 71260; J3490

== ENCOUNTER 2022-01-24 02:48 | Outpatient (RCR) | payer MEDICARE, MEDICAID, SELFPAY ==
[2022-01-24 09:22] LABS: Abs Immature Grans 0.02 10^3/uL (0.0-0.06); Absolute Basophil Count 0.07 10^3/uL (0.0-0.2); Absolute Eosinophil Count 0.35 10^3/uL (0.0-0.7); Absolute Lymphocyte Count 2.61 10^3/uL (1.2-3.4); Absolute Neutrophil Count 4.85 10^3/uL (1.2-6.7); Basophils % 0.8; HCT 42.4 % (40.0-50.0); HGB 14.6 g/dL (13.5-17.5); Immature Grans % 0.2; MCH 32.4 pg (27.0-33.0); MCHC 34.4 % (32.0-36.0); MCV 94 fL (80-95); MPV 10.3 fL (8.0-11.0); Monocytes % 9.2; Neutrophils % 55.8; Platelet Count 198 10^3/uL (130-400); RBC 4.51 10^6/uL (4.36-5.78); RDW 12.5 % (11.8-14.1); RDW-SD 43.4 fL
[2022-01-24 09:36] LABS: ALT 17 U/L (16-63); AST 16 U/L (15-37); Albumin 3.8 g/dL (3.4-5.0); Alkaline Phosphatase 126 U/L (46-116); Anion Gap 9.6 mmol/L (3-11); BUN 13 mg/dL (7-18); Bilirubin, Total 0.4 mg/dL (0.2-1.0); CO2 29.4 mmol/L (21.0-32.0); CREATININE 0.8 mg/dL (0.70-1.30); Calcium 9.1 mg/dL (8.5-10.1); Chloride 109 mmol/L (98-107); Estimated GFR 94.62 (mL/min/1.73m2); Glucose 88 mg/dL (74-106); Sodium 148 mmol/L (136-145); Total Protein 7.2 g/dL (6.4-8.2)
[2022-01-25 12:11] LABS: PSA, Ultrasensitive 0.46 ng/mL (<= 6.5)
[2022-01-27 22:42] LABS: Testosterone, Total <7.0 ng/dL (240-950)
== END 2022-01-25 23:59 | disposition home or self-care (01) ==
LOC: INF 02:48
PROVIDERS: Nurse Practitioner Adult Health; PCP Nurse Practitioner Family; Visit Provider Internal Medicine
DX: C61 Malignant neoplasm of prostate (principal)
CPT/HCPCS: 36415; 80053; 84153; 84403; 85025

== ENCOUNTER → 2022-02-23 13:39 | Outpatient (BNVA) | payer MEDICARE, MEDICAID, SELFPAY | PROVIDERS: PCP Nurse Practitioner Family; Referring Provider Registered Nurse Maternal Newborn; Visit Provider Psychiatry & Neurology Neurology | DX: I10 Essential (primary) hypertension (principal); F17.210 Nicotine dependence, cigarettes, uncomplicated; F10.10 Alcohol abuse, uncomplicated; F12.90 Cannabis use, unspecified, uncomplicated; R90.82 White matter disease, unspecified | CPT/HCPCS: 99214 ==

== ENCOUNTER → 2022-04-21 00:47 | Outpatient (CLI) | payer MEDICARE, MEDICAID, SELFPAY ==
[2022-04-21 10:10] LABS: Abs Immature Grans 0.03 10^3/uL (0.0-0.06); Absolute Basophil Count 0.04 10^3/uL (0.0-0.2); Absolute Monocyte Count 0.76 10^3/uL (0.1-0.8); Absolute Neutrophil Count 5.39 10^3/uL (1.2-6.7); Basophils % 0.5; Eosinophils % 2.3; HCT 42.3 % (40.0-50.0); HGB 14.3 g/dL (13.5-17.5); Immature Grans % 0.3; Lymphocytes % 27.2; MCH 32.6 pg (27.0-33.0); MCHC 33.8 % (32.0-36.0); MCV 96 fL (80-95); Monocytes % 8.6; Neutrophils % 61.1; Platelet Count 190 10^3/uL (130-400); RBC 4.39 10^6/uL (4.36-5.78); RDW 12.2 % (11.8-14.1); RDW-SD 43.3 fL; WBC 8.82 10^3/uL (4.4-10.8)
[2022-04-21 10:32] LABS: ALT 14 U/L (16-63); AST 15 U/L (15-37); Albumin 3.8 g/dL (3.4-5.0); Alkaline Phosphatase 117 U/L (46-116); Anion Gap 7.3 mmol/L (3-11); BUN 16 mg/dL (7-18); Bilirubin, Total 0.5 mg/dL (0.2-1.0); CO2 28.7 mmol/L (21.0-32.0); CREATININE 0.9 mg/dL (0.70-1.30); Calcium 9.3 mg/dL (8.5-10.1); Chloride 105 mmol/L (98-107); Estimated GFR 91.31 (mL/min/1.73m2); Glucose 105 mg/dL (74-106); Potassium 3.7 mmol/L (3.5-5.1); Sodium 141 mmol/L (136-145)
--- NOTE | 2022-04-21 11:00 | DI.CT_ITS ---
Exam(s) CT CHEST W EXAM: CT CHEST W CLINICAL HISTORY: PROSTATE CA, METS MULTIPLE SITES, RESTAGING, C61 TECHNIQUE: CT examination of the chest was performed with intravenous infusion of 70 cc of Omnipaque 350. COMPARISON: CT CT CHEST/ABD/PEL W from 01/18/2022 FINDINGS: There appear to be mild changes of centrilobular emphysema. A 4 millimeter right lower lobe intrapul monary nodule seen on prior CT of January 18 is unchanged. Areas of nodular and linear subpleural r adiodensity seen in left upper lobe laterally are perhaps slightly more prominent than on prior exami nation. No new suspicious mass period. There is no evidence of pleural effusion. There is no gross evidence of pulmonary embolic disease, although pulmonary arterial circulation is i deally opacified to rule out a small embolus period. There is unremarkable appearance of the thoraci c aorta and major branches with no evidence of aneurysm or dissection. There is no mediastinal or hilar adenopathy. Tracheobronchial tree appears intact. Note is made of coronary artery calcification. No axillary or supraclavicular adenopathy. Visualized portions of the liver, spleen, adrenals, and kidneys are unremarkable. There is evidence of widespread osseous metastatic disease, sclerotic and lytic, no gross interval ch pedro from prior examination.. IMPRESSION: Question slightly increased prominence of nodular and linear radiodensities laterally in the left stanley g since prior examination, findings could represent subtle increasing metastatic lesion. Widespread osseous metastatic disease again noted, grossly unchanged. RADIATION DOSE DELIVERED: Total DLP Total DLP DATA REPOSITORY: All CT scans at this facility are submitted to the National Radiology Data Registry (NRDR) Dose Index Registry (DIR) with the [employer] (ACR). RADIATION OPTIMIZATION: All CT scans at this facility use at least one of these dose optimization te chniques: automated exposure control; mA and/or kV adjustment per patient size (includes targeted exa ms where dose is matched to clinical indication); or iterative reconstruction.
[2022-04-21] MEDS: Omnipaque 350 MG/ML 500 ML BTL-Imaging package 70 ML IJ (11:15)
[2022-04-22 12:39] LABS: PSA, Ultrasensitive 0.98 ng/mL (<= 6.5)
[2022-04-25 11:47] LABS: Testosterone, Total <7.0 ng/dL (240-950)
== END ==
PROVIDERS: PCP Nurse Practitioner Family; Visit Provider Internal Medicine
DX: C61 Malignant neoplasm of prostate (principal)
CPT/HCPCS: 80053; 84153; 84403; 71260; 85025

== ENCOUNTER 2022-06-13 02:53 | Outpatient (RCR) | payer MEDICARE, MEDICAID, SELFPAY ==
[2022-06-13 10:22] LABS: Abs Immature Grans 0.03 10^3/uL (0.0-0.06); Absolute Basophil Count 0.06 10^3/uL (0.0-0.2); Absolute Eosinophil Count 0.19 10^3/uL (0.0-0.7); Absolute Lymphocyte Count 2.53 10^3/uL (1.2-3.4); Absolute Monocyte Count 0.56 10^3/uL (0.1-0.8); Absolute Neutrophil Count 5.45 10^3/uL (1.2-6.7); Basophils % 0.7; Eosinophils % 2.2; HGB 15.2 g/dL (13.5-17.5); Immature Grans % 0.3; Lymphocytes % 28.7; MCH 32.1 pg (27.0-33.0); MCHC 33.8 % (32.0-36.0); MCV 95 fL (80-95); MPV 10.2 fL (8.0-11.0); Monocytes % 6.3; Neutrophils % 61.8; Platelet Count 201 10^3/uL (130-400); RBC 4.73 10^6/uL (4.36-5.78); RDW 11.9 % (11.8-14.1); RDW-SD 41.4 fL; WBC 8.82 10^3/uL (4.4-10.8)
[2022-06-13 10:37] LABS: ALT 15 U/L (16-63); AST 16 U/L (15-37); Albumin 4.1 g/dL (3.4-5.0); Alkaline Phosphatase 126 U/L (46-116); Anion Gap 7.6 mmol/L (3-11); BUN 12 mg/dL (7-18); Bilirubin, Total 0.4 mg/dL (0.2-1.0); CO2 30.4 mmol/L (21.0-32.0); CREATININE 0.9 mg/dL (0.70-1.30); Calcium 9.7 mg/dL (8.5-10.1); Chloride 103 mmol/L (98-107); Estimated GFR 91.31 (mL/min/1.73m2); Glucose 124 mg/dL (74-106); Potassium 3.8 mmol/L (3.5-5.1); Sodium 141 mmol/L (136-145); Total Protein 7.4 g/dL (6.4-8.2)
[2022-06-14 16:54] LABS: PSA, Ultrasensitive 1.7 ng/mL (<= 6.5)
[2022-06-16 14:44] LABS: Testosterone, Total <7.0 ng/dL (240-950)
== END 2022-06-27 23:59 | disposition home or self-care (01) ==
LOC: INF 02:53
PROVIDERS: PCP Nurse Practitioner Family; Visit Provider Internal Medicine
DX: C61 Malignant neoplasm of prostate (principal)
CPT/HCPCS: 36415; 80053; 84153; 84403; 85025

== ENCOUNTER 2022-07-11 01:39 | Outpatient (RCR) | payer MEDICARE, MEDICAID, SELFPAY ==
[2022-07-11 09:29] LABS: Abs Immature Grans 0.03 10^3/uL (0.0-0.06); Absolute Basophil Count 0.06 10^3/uL (0.0-0.2); Absolute Eosinophil Count 0.25 10^3/uL (0.0-0.7); Absolute Lymphocyte Count 3.02 10^3/uL (1.2-3.4); Absolute Monocyte Count 0.85 10^3/uL (0.1-0.8); Absolute Neutrophil Count 5.66 10^3/uL (1.2-6.7); Basophils % 0.6; Eosinophils % 2.5; HCT 43.6 % (40.0-50.0); HGB 14.6 g/dL (13.5-17.5); Immature Grans % 0.3; Lymphocytes % 30.6; MCH 32.1 pg (27.0-33.0); MCHC 33.5 % (32.0-36.0); MCV 96 fL (80-95); MPV 10.3 fL (8.0-11.0); Monocytes % 8.6; Neutrophils % 57.4; Platelet Count 220 10^3/uL (130-400); RBC 4.55 10^6/uL (4.36-5.78); RDW 12.6 % (11.8-14.1); RDW-SD 44.2 fL; WBC 9.87 10^3/uL (4.4-10.8)
[2022-07-11 09:47] LABS: ALT 17 U/L (16-63); AST 17 U/L (15-37); Albumin 3.8 g/dL (3.4-5.0); Alkaline Phosphatase 120 U/L (46-116); Anion Gap 6.3 mmol/L (3-11); BUN 12 mg/dL (7-18); Bilirubin, Total 0.5 mg/dL (0.2-1.0); CO2 30.7 mmol/L (21.0-32.0); CREATININE 0.8 mg/dL (0.70-1.30); Calcium 9.4 mg/dL (8.5-10.1); Chloride 105 mmol/L (98-107); Estimated GFR 94.03 (mL/min/1.73m2); Glucose 91 mg/dL (74-106); Potassium 3.7 mmol/L (3.5-5.1); Sodium 142 mmol/L (136-145)
[2022-07-12 19:20] LABS: PSA, Ultrasensitive 1.8 ng/mL (<= 6.5)
[2022-07-17 17:24] LABS: Testosterone, Total <7.0 ng/dL (240-950)
== END 2022-07-25 23:59 | disposition home or self-care (01) ==
LOC: INF 01:39
PROVIDERS: PCP Nurse Practitioner Family; Visit Provider Internal Medicine
DX: C61 Malignant neoplasm of prostate (principal)
CPT/HCPCS: 36415; 80053; 84153; 84403; 85025

== ENCOUNTER 2022-07-24 10:12 | Outpatient (CLI) | payer MEDICARE, MEDICAID, SELFPAY ==
--- NOTE | 2022-07-24 | DI.US_ITS ---
APPROVED REPORT EXAM: Comprehensive 2D, Doppler, and color-flow Echocardiogram Patient Location: Out-Patient Blank Driller: Lety Tinajero RDCS (AE) Indications: Exertional SOB, Smoker Other Information Study Quality: Fair Conclusion Normal left ventricular wall thickness and chamber size. Estimated ejection fraction is 55 to 60%. Wall motion is normal Normal right ventricular size and systolic function Both atria are normal in size There is no structural or hemodynamically significant valvular disease Normal estimated right ventricular systolic pressure, 26 mmHg Mildly dilated ascending aorta 3.83 cm Wall motion Left Ventricle The left ventricle is normal size. The left ventricular systolic function is normal. The left ventric ular ejection fraction is within the normal range. There is normal left ventricular wall thickness. T here is normal LV segmental wall motion. There is no ventricular septal defect visualized. LVEF is 55 -60%. Right Ventricle The right ventricle is normal size. The right ventricular systolic function is normal. The RVSP is 26 .1 mmHg. Atria The left atrium size is normal. The right atrium size is normal. The interatrial septum is intact wit h no evidence for an atrial septal defect. Aortic Valve The aortic valve is normal in structure. Aortic valve is trileaflet. There is no aortic valvular sten osis. No aortic regurgitation is present. Mitral Valve The mitral valve is normal in structure. No evidence of mitral valve stenosis. Trace mitral regurgita tion. Tricuspid Valve The tricuspid valve is normal in structure. There is no tricuspid valve stenosis. Trace tricuspid reg urgitation. Pulmonic Valve The pulmonary valve is normal in structure. There is no pulmonic valvular stenosis. There is no pulmo ugo valvular regurgitation. Great Vessels The aortic root is normal in size. The ascending aorta is mildly dilated. Aortic arch is normal in ca liber. IVC is normal in size and collapses >50% with inspiration. Pericardium There is no pericardial effusion. 2D Dimensions IVSD d PLAX 1.10 cm M: 0.6-1.2 LV Vol A2C d MOD 87.0 mL LVPW d PLAX 1.12 cm M: 0.6 - 1.2 LV Vol A4C d MOD 103.2 mL LVID d PLAX 4.55 cm M: 4.2 - 5.8 LA vol/ BSA A2C s A-L 33.1 mL/m2 LVDs 3.15 cm M: 2.5 - 4.0 LA vol/ BSA A4C s A-L 26.2 mL/m2 Ao Root d 3.52 cm M: 3.1 - 3.7 LA Vol/ BSA Biplane s A-L 29.8 mL/m2 RA Area A4C 15.04 cm2 LA Area A4C s MOD 18.36 cm2 RA Vol/ BSA A4C s A-L 18.5 mL/m2 LA Area A2C s MOD 20.92 cm2 Ao Asc Diam d 3.83 cm M: 2.6 - 3.4 LV EF A4C MOD 55.5 % LV EF Teichholz 57.6 % LV EF A2C MOD 56.2 % LVEF (Thompson's) 56.02 % M: 52 - 72 LV EF Biplane MOD 56.0 % LV Volume 71.97 mL M: 62 - 150 SV 53.76 mL LV Volume Index 35.98 mL/m2 M: 34 - 74 SV Index 26.88 mL/m2 LV Vol Biplane MOD 96.0 mL FS 30.15 % M-Mode TAPSE 1.68 cm (M/F) >1.7 LV Diastology MV E' medial 0.068 (>0.07 m/s) E/A Ratio 0.6 LV E/e MED 6.40 (<14) MV E Vmax 0.44 (0.4-1.3 m/s) MV E' lateral 0.066 (>0.1 m/s) MV A Vmax 0.80 (0.4-1.3 m/s) LV E/e LAT 6.65 (<14) MV E/A Ratio 0.54 MV E/E' medial 6.43 MV E/E' lateral 6.67 Aortic Valve LVOT Area 3.68 cm2 AoV Area Vmax 2.95 cm2 LVOT Vmax 0.96 m/s AoV Area/ BSA (Vmax) 1.48 cm2/m2 LVOT Mean Jackson. 0.62 m/s ERIK Mean Jacskon. 2.73 cm2 LVOT Peak Grad 3.7 mmHg ERIK Mean Jackson. Index 1.37 cm2/m2 LVOT Mean Grad 1.8 mmHg LVOT VTI 0.219 m LVOT Diam s 2.15 cm AoV Vmax 1.19 m/s Velocity Ratio 0.81 AoV Mean Jackson. 0.83 m/s AoV Peak Grad 5.7 mmHg LVOT SV 80.78 mL AoV Mean Grad 3.1 mmHg AoV VTI 0.227 m AoV Area VTI 3.56 cm2 AoV Area/ BSA (VTI) 1.78 cm/m2 Mitral Valve MV DT 410 (160-240 msec) MV PHT 119 msec MV Area PHT 1.85 cm2 MV VTI 0.204 m MV Area VTI 3.97 (4.0-6.0 cm2) Pulmonary Valve PV Vmax 0.91 (0.5-1.5 m/s) RVOT Peak Gr. 2.45 mmHg PV Peak Grad 3.3 mmHg RVOT Mean Gr. 1.15 mmHg PV Mean Grad 1.7 mmHg RVOT VTI 0.153 m PV VTI 0.186 m RVOT Vmax 0.78 m/s Tricuspid Valve TR Peak Grad 23.1 mmHg TR Vmax 2.41 m/s RA Pressure 3.00 mmHg RVSP (TR) 26.1 mmHg
== END 2022-07-24 10:32 ==
LOC: DI 10:15
PROVIDERS: PCP Nurse Practitioner Family; Visit Provider Nurse Practitioner Family
DX: R06.09 Other forms of dyspnea (principal)
CPT/HCPCS: 93306

== ENCOUNTER → 2022-09-12 11:12 | Outpatient (BNVA) | payer MEDICARE, MEDICAID, SELFPAY | PROVIDERS: PCP Nurse Practitioner Family; Referring Provider Nurse Practitioner Family; Visit Provider Surgery | DX: K40.20 Bilateral inguinal hernia, without obstruction or gangrene, not specified as recurrent (principal) | CPT/HCPCS: 99214 ==

== ENCOUNTER 2022-09-26 12:04 | Outpatient (CLI) | payer MEDICARE, MEDICAID, SELFPAY ==
--- NOTE | 2022-09-26 10:45 | DI.RAD_ITS ---
Exam(s) XR CHEST 2V PA LATERAL EXAM: XR CHEST 2V PA LATERAL CLINICAL HISTORY: recent PNX, asses no PNX prior to PFT's J95.811. TECHNIQUE: 2D digital imaging was performed. COMPARISON: CT CT CHEST W from 04/03/2019 CR XR RIBS RT W PA LAT CHEST from 05/17/2021 FINDINGS: 2 views: Heart size is normal. The mediastinum is not widened. Very subtle increased markings are noted the lateral aspect of left lung field. No distinct nodules and no pleural effusions. On the lateral view some density few thoracic bodies. This is subtle but present. IMPRESSION: Subtle increased markings in the mid lateral left lung field. Also osseous findings as above.Given t he past history of metastatic prostate malignancy recommend chest CT scan. DATA REPOSITORY: RADIATION DOSE DELIVERED:
== END 2022-09-26 12:24 ==
PROVIDERS: PCP Nurse Practitioner Family; Visit Provider Student in an Organized Health Care Education/Training Program
DX: J95.811 Postprocedural pneumothorax (principal)
CPT/HCPCS: 71046

== ENCOUNTER 2022-10-02 02:49 | Outpatient (RCR) | payer MEDICARE, MEDICAID, SELFPAY ==
[2022-10-02 11:31] LABS: Abs Immature Grans 0.01 10^3/uL (0.0-0.06); Absolute Basophil Count 0.03 10^3/uL (0.0-0.2); Absolute Eosinophil Count 0.17 10^3/uL (0.0-0.7); Absolute Lymphocyte Count 1.95 10^3/uL (1.2-3.4); Absolute Monocyte Count 0.53 10^3/uL (0.1-0.8); Basophils % 0.5; Eosinophils % 2.6; HCT 41.5 % (40.0-50.0); HGB 14.3 g/dL (13.5-17.5); Immature Grans % 0.2; Lymphocytes % 29.6; MCH 32.6 pg (27.0-33.0); MCHC 34.5 % (32.0-36.0); MCV 95 fL (80-95); Neutrophils % 59.1; Platelet Count 184 10^3/uL (130-400); RBC 4.38 10^6/uL (4.36-5.78); RDW 12.9 % (11.8-14.1); RDW-SD 45.1 fL; WBC 6.59 10^3/uL (4.4-10.8)
[2022-10-02 11:45] LABS: ALT 17 U/L (16-63); AST 14 U/L (15-37); Albumin 3.7 g/dL (3.4-5.0); Alkaline Phosphatase 127 U/L (46-116); Anion Gap 5.6 mmol/L (3-11); BUN 12 mg/dL (7-18); Bilirubin, Total 0.4 mg/dL (0.2-1.0); CO2 29.4 mmol/L (21.0-32.0); CREATININE 0.8 mg/dL (0.70-1.30); Chloride 108 mmol/L (98-107); Estimated GFR 94.03 (mL/min/1.73m2); Glucose 86 mg/dL (74-106); Potassium 3.8 mmol/L (3.5-5.1); Sodium 143 mmol/L (136-145); Total Protein 6.9 g/dL (6.4-8.2)
[2022-10-03 17:42] LABS: PSA, Ultrasensitive 1.7 ng/mL (<= 6.5)
[2022-10-06 11:21] LABS: Testosterone, Total <7.0 ng/dL (240-950)
== END 2022-10-25 23:59 | disposition home or self-care (01) ==
LOC: INF 02:49
PROVIDERS: PCP Nurse Practitioner Family; Visit Provider Internal Medicine
DX: C61 Malignant neoplasm of prostate (principal)
CPT/HCPCS: 36415; 80053; 84153; 84403; 85025

== ENCOUNTER 2022-12-07 03:22 | Outpatient (CLI) | payer MEDICARE, MEDICAID, SELFPAY ==
[2022-12-07] MEDS: Albuterol HFA 18 GM 200 PUFF INH IH (09:33)
[2022-12-07] MEDS: Inhaler, Assist Device 1 EACH MC (09:33)
--- NOTE | 2022-12-07 15:06 | W.PFT ---
Date of service: 12/07/22 Time of Service: 08:05 Pulmonary Function Test Result Indications: Emphysema Interpretation Spirometry: There is mild airflow limitations. No significant bronchodilator response. Lung Volumes: There is air trapping and hyperinflation. Diffusion Capacity: The diffusion is low Airway Pressure: Normal airways resistance Impression Mild airflow obstruction with air trapping and low diffusion. Clinical Correlation therefore is recommended.
== END 2022-12-07 03:23 | disposition home or self-care (01) ==
LOC: RT 03:22
PROVIDERS: PCP Nurse Practitioner Family; Visit Provider Student in an Organized Health Care Education/Training Program
DX: J43.0 Unilateral pulmonary emphysema [MacLeod's syndrome] (principal)
CPT/HCPCS: 94060; 94726; 94729

== ENCOUNTER 2023-01-02 03:48 | Outpatient (RCR) | payer MEDICARE, MEDICAID, SELFPAY ==
[2023-01-02 09:49] LABS: Abs Immature Grans 0.02 10^3/uL (0.0-0.06); Absolute Basophil Count 0.04 10^3/uL (0.0-0.2); Absolute Eosinophil Count 0.25 10^3/uL (0.0-0.7); Absolute Lymphocyte Count 2.46 10^3/uL (1.2-3.4); Absolute Monocyte Count 0.74 10^3/uL (0.1-0.8); Absolute Neutrophil Count 4.59 10^3/uL (1.2-6.7); Basophils % 0.5; Eosinophils % 3.1; HCT 41.5 % (40.0-50.0); HGB 13.9 g/dL (13.5-17.5); Immature Grans % 0.2; Lymphocytes % 30.4; MCH 31.8 pg (27.0-33.0); MCHC 33.5 % (32.0-36.0); MCV 95 fL (80-95); MPV 10.2 fL (8.0-11.0); Monocytes % 9.1; Neutrophils % 56.7; Platelet Count 202 10^3/uL (130-400); RBC 4.37 10^6/uL (4.36-5.78); RDW 12.5 % (11.8-14.1); RDW-SD 43.2 fL
[2023-01-02 10:04] LABS: ALT 18 U/L (16-63); AST 14 U/L (15-37); Albumin 3.5 g/dL (3.4-5.0); Alkaline Phosphatase 120 U/L (46-116); Anion Gap 7.5 mmol/L (3-11); BUN 14 mg/dL (7-18); Bilirubin, Total 0.4 mg/dL (0.2-1.0); CO2 28.5 mmol/L (21.0-32.0); CREATININE 0.8 mg/dL (0.70-1.30); Calcium 9.1 mg/dL (8.5-10.1); Chloride 108 mmol/L (98-107); Estimated GFR 94.03 (mL/min/1.73m2); Glucose 79 mg/dL (74-106); Potassium 3.8 mmol/L (3.5-5.1); Sodium 144 mmol/L (136-145); Total Protein 6.5 g/dL (6.4-8.2)
[2023-01-04 09:57] LABS: PSA, Ultrasensitive 2.3 ng/mL (<= 6.5)
[2023-01-07 15:29] LABS: Testosterone, Total <7.0 ng/dL (240-950)
== END 2023-01-25 23:59 | disposition home or self-care (01) ==
LOC: INF 03:48
PROVIDERS: PCP Nurse Practitioner Family; Visit Provider Internal Medicine
DX: C61 Malignant neoplasm of prostate (principal)
CPT/HCPCS: 36415; 80053; 84153; 84403; 85025

== ENCOUNTER → 2023-03-05 08:44 | Outpatient (BNVA) | payer MEDICARE, MEDICAID, SELFPAY | PROVIDERS: PCP Nurse Practitioner Family; Referring Provider Nurse Practitioner Family; Visit Provider Physician Assistant Surgical | DX: R06.00 Dyspnea, unspecified (principal); J95.811 Postprocedural pneumothorax; R91.1 Solitary pulmonary nodule; C61 Malignant neoplasm of prostate; C79.51 Secondary malignant neoplasm of bone | CPT/HCPCS: 99214 ==

== ENCOUNTER 2023-05-10 13:17 | Outpatient (RCR) | payer MEDICARE, MEDICAID, SELFPAY ==
[2023-05-10 13:44] LABS: Abs Immature Grans 0.02 10^3/uL (0.0-0.06); Absolute Basophil Count 0.03 10^3/uL (0.0-0.2); Absolute Lymphocyte Count 1.35 10^3/uL (1.2-3.4); Absolute Monocyte Count 0.51 10^3/uL (0.1-0.8); Absolute Neutrophil Count 5.31 10^3/uL (1.2-6.7); Basophils % 0.4; Eosinophils % 1.4; HCT 41.5 % (40.0-50.0); HGB 14.1 g/dL (13.5-17.5); Immature Grans % 0.3; Lymphocytes % 18.4; MCH 32.5 pg (27.0-33.0); MCV 96 fL (80-95); MPV 10.2 fL (8.0-11.0); Neutrophils % 72.5; Platelet Count 189 10^3/uL (130-400); RBC 4.34 10^6/uL (4.36-5.78); RDW 12.4 % (11.8-14.1); RDW-SD 43.3 fL; WBC 7.32 10^3/uL (4.4-10.8)
[2023-05-10 13:53] LABS: ALT 17 U/L (16-63); AST 13 U/L (15-37); Albumin 3.6 g/dL (3.4-5.0); Alkaline Phosphatase 115 U/L (46-116); Anion Gap 7.3 mmol/L (3-11); BUN 11 mg/dL (7-18); Bilirubin, Total 0.5 mg/dL (0.2-1.0); CO2 28.7 mmol/L (21.0-32.0); CREATININE 0.8 mg/dL (0.70-1.30); Calcium 9.1 mg/dL (8.5-10.1); Chloride 105 mmol/L (98-107); Estimated GFR 94.03 (mL/min/1.73m2); Glucose 132 mg/dL (74-106); Potassium 3.6 mmol/L (3.5-5.1); Sodium 141 mmol/L (136-145); Total Protein 6.7 g/dL (6.4-8.2)
[2023-05-12 10:29] LABS: PSA, Ultrasensitive 3.3 ng/mL (<= 6.5)
[2023-05-14 16:28] LABS: Testosterone, Total <7.0 ng/dL (240-950)
== END 2023-05-27 23:59 | disposition home or self-care (01) ==
LOC: INF 13:17
PROVIDERS: PCP Nurse Practitioner Family; Visit Provider Internal Medicine
DX: C61 Malignant neoplasm of prostate (principal)
CPT/HCPCS: 36415; 80053; 84153; 84403; 85025

== ENCOUNTER 2023-07-24 09:40 | Outpatient (RCR) | payer MEDICARE, MEDICAID, SELFPAY ==
[2023-07-24 10:13] LABS: Abs Immature Grans 0.02 10^3/uL (0.0-0.06); Absolute Basophil Count 0.07 10^3/uL (0.0-0.2); Absolute Eosinophil Count 0.23 10^3/uL (0.0-0.7); Absolute Monocyte Count 0.81 10^3/uL (0.1-0.8); Absolute Neutrophil Count 4.75 10^3/uL (1.2-6.7); Basophils % 0.8; Eosinophils % 2.7; HCT 43.6 % (40.0-50.0); Immature Grans % 0.2; Lymphocytes % 31.5; MCH 32.6 pg (27.0-33.0); MCHC 34.4 % (32.0-36.0); MCV 95 fL (80-95); MPV 10.2 fL (8.0-11.0); Monocytes % 9.4; Neutrophils % 55.4; Platelet Count 213 10^3/uL (130-400); RDW 12.4 % (11.8-14.1); RDW-SD 42.8 fL; WBC 8.58 10^3/uL (4.4-10.8)
[2023-07-24 10:32] LABS: ALT 16 U/L (16-63); AST 15 U/L (15-37); Albumin 3.8 g/dL (3.4-5.0); Alkaline Phosphatase 121 U/L (46-116); Anion Gap 10.7 mmol/L (3-11); BUN 12 mg/dL (7-18); Bilirubin, Total 0.5 mg/dL (0.2-1.0); CO2 28.3 mmol/L (21.0-32.0); CREATININE 0.8 mg/dL (0.70-1.30); Calcium 9.5 mg/dL (8.5-10.1); Chloride 107 mmol/L (98-107); Estimated GFR 93.45 (mL/min/1.73m2); Glucose 86 mg/dL (74-106); Potassium 3.5 mmol/L (3.5-5.1); Sodium 146 mmol/L (136-145); Total Protein 7.1 g/dL (6.4-8.2)
[2023-07-25 20:23] LABS: PSA, Ultrasensitive 4.8 ng/mL (<= 6.5)
[2023-07-28 03:12] LABS: Testosterone, Total <7.0 ng/dL (240-950)
== END 2023-07-26 23:59 | disposition home or self-care (01) ==
LOC: INF 09:40
PROVIDERS: PCP Nurse Practitioner Family; Visit Provider Internal Medicine
DX: C61 Malignant neoplasm of prostate (principal)
CPT/HCPCS: 36415; 80053; 84153; 84403; 85025

== ENCOUNTER → 2023-09-03 10:02 | Outpatient (BNVA) | payer MEDICARE, MEDICAID, SELFPAY | PROVIDERS: PCP Nurse Practitioner Family; Referring Provider Nurse Practitioner Family; Visit Provider Student in an Organized Health Care Education/Training Program | DX: J44.9 Chronic obstructive pulmonary disease, unspecified (principal); R91.1 Solitary pulmonary nodule; C61 Malignant neoplasm of prostate; C79.51 Secondary malignant neoplasm of bone | CPT/HCPCS: 99443 ==

== ENCOUNTER 2023-10-09 05:02 | Outpatient (RCR) | payer MEDICARE, SELFPAY ==
[2023-10-09 09:41] LABS: Abs Immature Grans 0.03 10^3/uL (0.0-0.06); Absolute Basophil Count 0.08 10^3/uL (0.0-0.2); Absolute Lymphocyte Count 2.32 10^3/uL (1.2-3.4); Absolute Monocyte Count 0.77 10^3/uL (0.1-0.8); Absolute Neutrophil Count 6.24 10^3/uL (1.2-6.7); Basophils % 0.8 %; HCT 39.8 % (40.0-50.0); HGB 13.4 g/dL (13.5-17.5); Immature Grans % 0.3 %; Lymphocytes % 23.1 %; MCH 32.1 pg (27.0-33.0); MCHC 33.7 % (32.0-36.0); MCV 95 fL (80-95); MPV 9.2 fL (8.0-11.0); Monocytes % 7.7 %; Neutrophils % 62.1 %; Platelet Count 348 10^3/uL (130-400); RBC 4.18 10^6/uL (4.36-5.78); RDW-SD 41.7 fL; WBC 10.04 10^3/uL (4.4-10.8)
[2023-10-09 09:52] LABS: ALT 17 U/L (16-63); AST 11 U/L (15-37); Albumin 3.3 g/dL (3.4-5.0); Alkaline Phosphatase 107 U/L (46-116); Anion Gap 8.8 mmol/L (3-11); BUN 15 mg/dL (7-18); Bilirubin, Total 0.3 mg/dL (0.2-1.0); CO2 30.2 mmol/L (21.0-32.0); CREATININE 0.8 mg/dL (0.70-1.30); Calcium 9.2 mg/dL (8.5-10.1); Chloride 106 mmol/L (98-107); Estimated GFR 93.45 (mL/min/1.73m2); Glucose 93 mg/dL (74-106); Potassium 3.9 mmol/L (3.5-5.1); Sodium 145 mmol/L (136-145); Total Protein 6.9 g/dL (6.4-8.2)
[2023-10-11 18:29] LABS: PSA, Ultrasensitive 6.9 ng/mL (<= 6.5)
[2023-10-13 16:08] LABS: Testosterone, Total <7.0 ng/dL (240-950)
== END 2023-10-26 23:59 | disposition home or self-care (01) ==
LOC: INF 05:02
PROVIDERS: PCP Nurse Practitioner Family; Visit Provider Internal Medicine
DX: C61 Malignant neoplasm of prostate (principal)
CPT/HCPCS: 36415; 80053; 84153; 84403; 85025

== ENCOUNTER → 2023-12-03 14:52 | Outpatient (BNVA) | payer MEDICARE, SELFPAY | PROVIDERS: Referring Provider Nurse Practitioner Family; Visit Provider Physician Assistant Surgical | DX: J43.9 Emphysema, unspecified (principal); R91.1 Solitary pulmonary nodule; R06.00 Dyspnea, unspecified; J95.811 Postprocedural pneumothorax; C61 Malignant neoplasm of prostate; C79.51 Secondary malignant neoplasm of bone | CPT/HCPCS: 99214 ==

== ENCOUNTER 2024-02-12 01:41 | Outpatient (RCR) | payer MEDICARE, SELFPAY ==
[2024-02-12 09:57] LABS: Abs Immature Grans 0.03 10^3/uL (0.0-0.06); Absolute Basophil Count 0.05 10^3/uL (0.0-0.2); Absolute Eosinophil Count 0.34 10^3/uL (0.0-0.7); Absolute Lymphocyte Count 2.13 10^3/uL (1.2-3.4); Absolute Monocyte Count 0.68 10^3/uL (0.1-0.8); Absolute Neutrophil Count 4.29 10^3/uL (1.2-6.7); Basophils % 0.7 %; Eosinophils % 4.5 %; HCT 41.3 % (40.0-50.0); HGB 13.8 g/dL (13.5-17.5); Immature Grans % 0.4 %; Lymphocytes % 28.3 %; MCH 31.9 pg (27.0-33.0); MCHC 33.4 % (32.0-36.0); MCV 95 fL (80-95); MPV 10.1 fL (8.0-11.0); Neutrophils % 57.1 %; Platelet Count 181 10^3/uL (130-400); RBC 4.33 10^6/uL (4.36-5.78); RDW 13.3 % (11.8-14.1); RDW-SD 46.5 fL; WBC 7.52 10^3/uL (4.4-10.8)
[2024-02-12 10:00] LABS: ALT 21 U/L (16-63); AST 15 U/L (15-37); Albumin 3.5 g/dL (3.4-5.0); Alkaline Phosphatase 126 U/L (46-116); Anion Gap 4.9 mmol/L (3-11); BUN 14 mg/dL (7-18); Bilirubin, Total 0.49 mg/dL (0.2-1.0); CO2 31.1 mmol/L (21.0-32.0); CREATININE 0.8 mg/dL (0.70-1.30); Calcium 9.4 mg/dL (8.5-10.1); Chloride 108 mmol/L (98-107); Estimated GFR 93.45 (mL/min/1.73m2); Glucose 78 mg/dL (74-106); Potassium 4.5 mmol/L (3.5-5.1); Sodium 144 mmol/L (136-145); Total Protein 6.6 g/dL (6.4-8.2)
[2024-02-14 12:50] LABS: PSA, Ultrasensitive 5.6 ng/mL (<= 6.5)
[2024-02-16 15:28] LABS: Testosterone, Total <7.0 ng/dL (240-950)
== END 2024-02-25 23:59 | disposition home or self-care (01) ==
LOC: INF 01:41
PROVIDERS: PCP Nurse Practitioner Family; Visit Provider Internal Medicine
DX: C61 Malignant neoplasm of prostate (principal)
CPT/HCPCS: 36415; 80053; 84153; 84403; 85025

== ENCOUNTER 2024-02-14 10:51 | Outpatient (CLI) | payer MEDICARE, SELFPAY ==
--- NOTE | 2024-02-14 10:45 | RT.EKG_ITS ---
APPROVED REPORT Exam: Resting ECG Reason for Exam: Dyspnea Patient Location: O HR:56 bpm ECG Measurements Heart Rate 56 AXIS KS 163 P -15 QRSd 89 QRS -44 QT 447 T 12 QTc 432 Conclusion Sinus rhythm...normal P axis, V-rate 50- 99 Left axis deviation...QRS axis (-30,-90)
== END 2024-02-14 10:52 | disposition home or self-care (01) ==
PROVIDERS: PCP Nurse Practitioner Family; Visit Provider Nurse Practitioner Family
DX: R06.00 Dyspnea, unspecified
CPT/HCPCS: 93010

== ENCOUNTER 2024-02-19 02:46 | Outpatient (CLI) | payer MEDICARE, SELFPAY ==
--- NOTE | 2024-02-19 13:48 | RT.PO.E_ITS ---
Date of service: 02/19/24 Time of Service: 11:28 6 Minute Walk Test Note: 6 Minute Walk Test (6MWT): Ambulatory oximetry report Diagnosis: Dyspnea on exertion Ordering provider: Evelina Brooks Conditions of test: Test done at [facility] on room air with a finger probe Results: The patient completed 6 minutes of ambulation. Initial SpO2 at baseline was 99% with a pulse of 70.? Respiratory rate was 9/min. Minimum oxygen saturation of 95% and a pulse of 86-92/min was noted at 3:00 and 5:30 minutes of ambulation. During a 2-minute recovery, O2 saturation improved from 97% to 98%.? Pulse decreased from a maximum of 95/min to 66/min. Consistent with good conditioning Distance: 1500 feet. Number of stops: 0 Impression: Normal 6-minute walk test on room air. Recommendations: Clinical correlation is recommended with primary provider. Rodrick Bartholomew MD [facility] Pulmonary & Critical Care Medicine
== END 2024-02-19 02:47 | disposition home or self-care (01) ==
LOC: RT 02:47
PROVIDERS: PCP Nurse Practitioner Family; Visit Provider Nurse Practitioner Family
DX: R06.00 Dyspnea, unspecified (principal)
CPT/HCPCS: 00123; 94618

== ENCOUNTER → 2024-03-13 10:59 | Outpatient (BNVA) | payer MEDICARE, SELFPAY | PROVIDERS: PCP Nurse Practitioner Family; Visit Provider Physician Assistant Surgical | DX: J43.9 Emphysema, unspecified (principal); C61 Malignant neoplasm of prostate; C79.51 Secondary malignant neoplasm of bone; R91.1 Solitary pulmonary nodule; R06.09 Other forms of dyspnea; J95.811 Postprocedural pneumothorax | CPT/HCPCS: 99214 ==

== ENCOUNTER 2024-04-15 02:56 | Outpatient (RCR) | payer MEDICARE, SELFPAY ==
[2024-04-15 10:24] LABS: Abs Immature Grans 0.03 10^3/uL (0.0-0.06); Absolute Basophil Count 0.06 10^3/uL (0.0-0.2); Absolute Eosinophil Count 0.28 10^3/uL (0.0-0.7); Absolute Lymphocyte Count 2.91 10^3/uL (1.2-3.4); Absolute Monocyte Count 0.81 10^3/uL (0.1-0.8); Absolute Neutrophil Count 3.88 10^3/uL (1.2-6.7); Basophils % 0.8 %; Eosinophils % 3.5 %; HCT 41.6 % (40.0-50.0); HGB 14.2 g/dL (13.5-17.5); Immature Grans % 0.4 %; Lymphocytes % 36.5 %; MCH 33.1 pg (27.0-33.0); MCHC 34.1 % (32.0-36.0); MCV 97 fL (80-95); MPV 9.7 fL (8.0-11.0); Monocytes % 10.2 %; Neutrophils % 48.6 %; Platelet Count 223 10^3/uL (130-400); RBC 4.29 10^6/uL (4.36-5.78); RDW 12.7 % (11.8-14.1); RDW-SD 45.3 fL; WBC 7.97 10^3/uL (4.4-10.8)
[2024-04-15 10:46] LABS: ALT 16 U/L (16-63); AST 15 U/L (15-37); Albumin 3.7 g/dL (3.4-5.0); Alkaline Phosphatase 127 U/L (46-116); Anion Gap 9.2 mmol/L (3-11); BUN 15 mg/dL (7-18); Bilirubin, Total 0.47 mg/dL (0.2-1.0); CO2 28.8 mmol/L (21.0-32.0); CREATININE 0.8 mg/dL (0.70-1.30); Calcium 9.2 mg/dL (8.5-10.1); Chloride 108 mmol/L (98-107); Estimated GFR 93.45 (mL/min/1.73m2); Glucose 82 mg/dL (74-106); Sodium 146 mmol/L (136-145); Total Protein 7.1 g/dL (6.4-8.2)
[2024-04-18 14:11] LABS: Testosterone, Total <7.0 ng/dL (240-950)
== END 2024-04-26 23:59 | disposition home or self-care (01) ==
LOC: INF 02:56
PROVIDERS: PCP Nurse Practitioner Family; Visit Provider Internal Medicine
DX: C61 Malignant neoplasm of prostate (principal)
CPT/HCPCS: 36415; 80053; 84153; 84403; 85025

== ENCOUNTER 2024-07-29 02:51 | Outpatient (RCR) | payer MEDICARE, SELFPAY ==
[2024-07-29 09:21] LABS: Abs Immature Grans 0.02 10^3/uL (0.0-0.06); Absolute Basophil Count 0.07 10^3/uL (0.0-0.2); Absolute Eosinophil Count 0.31 10^3/uL (0.0-0.7); Absolute Lymphocyte Count 2.84 10^3/uL (1.2-3.4); Absolute Monocyte Count 0.73 10^3/uL (0.1-0.8); Absolute Neutrophil Count 4.98 10^3/uL (1.2-6.7); Basophils % 0.8 %; Eosinophils % 3.5 %; HCT 41.8 % (40.0-50.0); HGB 14.3 g/dL (13.5-17.5); Immature Grans % 0.2 %; Lymphocytes % 31.7 %; MCH 32.4 pg (27.0-33.0); MCHC 34.2 % (32.0-36.0); MCV 95 fL (80-95); MPV 10.1 fL (8.0-11.0); Monocytes % 8.2 %; Neutrophils % 55.6 %; Platelet Count 240 10^3/uL (130-400); RBC 4.41 10^6/uL (4.36-5.78); RDW 11.9 % (11.8-14.1); RDW-SD 41.2 fL; WBC 8.95 10^3/uL (4.4-10.8)
[2024-07-29 09:39] LABS: ALT 16 U/L (16-63); AST 13 U/L (15-37); Albumin 3.6 g/dL (3.4-5.0); Alkaline Phosphatase 129 U/L (46-116); Anion Gap 9.8 mmol/L (3-11); BUN 12 mg/dL (7-18); Bilirubin, Total 0.44 mg/dL (0.2-1.0); CO2 28.2 mmol/L (21.0-32.0); CREATININE 0.9 mg/dL (0.70-1.30); Calcium 9.1 mg/dL (8.5-10.1); Chloride 109 mmol/L (98-107); Estimated GFR 89.62 (mL/min/1.73m2); Glucose 81 mg/dL (74-106); Potassium 3.7 mmol/L (3.5-5.1); Sodium 147 mmol/L (136-145); Total Protein 6.8 g/dL (6.4-8.2)
[2024-07-29 20:16] LABS: LDL CHOLESTEROL 70 mg/dL (<100)
[2024-07-31 17:24] LABS: PSA, Ultrasensitive 9.7 ng/mL (<= 6.5)
[2024-08-03 17:48] LABS: Testosterone, Total <7.0 ng/dL (240-950)
== END 2024-08-25 23:59 | disposition home or self-care (01) ==
LOC: INF 02:51
PROVIDERS: PCP Nurse Practitioner Family; Visit Provider Internal Medicine
DX: C61 Malignant neoplasm of prostate (principal); Z79.818 Long term (current) use of other agents affecting estrogen receptors and estrogen levels; Z79.899 Other long term (current) drug therapy
CPT/HCPCS: 36415; 80053; 83721; 84153; 84403; 85025

== ENCOUNTER → 2024-09-09 12:31 | Outpatient (BNVA) | payer MEDICARE, SELFPAY | PROVIDERS: PCP Nurse Practitioner Family; Referring Provider Nurse Practitioner Family; Visit Provider Physician Assistant Surgical | DX: C61 Malignant neoplasm of prostate (principal); C79.51 Secondary malignant neoplasm of bone; J43.9 Emphysema, unspecified; R91.1 Solitary pulmonary nodule; R06.09 Other forms of dyspnea; J95.811 Postprocedural pneumothorax | CPT/HCPCS: 99214 ==

== ENCOUNTER 2024-10-28 01:38 | Outpatient (RCR) | payer MEDICARE, SELFPAY ==
[2024-10-28 09:28] LABS: Abs Immature Grans 0.03 10^3/uL (0.0-0.06); Absolute Basophil Count 0.05 10^3/uL (0.0-0.2); Absolute Eosinophil Count 0.37 10^3/uL (0.0-0.7); Absolute Lymphocyte Count 2.74 10^3/uL (1.2-3.4); Absolute Neutrophil Count 4.06 10^3/uL (1.2-6.7); Basophils % 0.6 %; Eosinophils % 4.6 %; HCT 40.8 % (40.0-50.0); HGB 13.8 g/dL (13.5-17.5); Immature Grans % 0.4 %; MCH 32.2 pg (27.0-33.0); MCHC 33.8 % (32.0-36.0); MCV 95 fL (80-95); MPV 9.8 fL (8.0-11.0); Monocytes % 9.9 %; Neutrophils % 50.5 %; Platelet Count 213 10^3/uL (130-400); RBC 4.29 10^6/uL (4.36-5.78); RDW 13.2 % (11.8-14.1); RDW-SD 45.6 fL; WBC 8.05 10^3/uL (4.4-10.8)
[2024-10-28 10:00] LABS: ALT 15 U/L (16-63); AST 16 U/L (15-37); Albumin 3.6 g/dL (3.4-5.0); Alkaline Phosphatase 117 U/L (46-116); Anion Gap 7.5 mmol/L (3-11); BUN 15 mg/dL (7-18); Bilirubin, Total 0.5 mg/dL (0.2-1.0); CO2 30.5 mmol/L (21.0-32.0); CREATININE 0.7 mg/dL (0.70-1.30); Calcium 9.2 mg/dL (8.5-10.1); Chloride 107 mmol/L (98-107); Estimated GFR 96.69 (mL/min/1.73m2); Glucose 80 mg/dL (74-106); Sodium 145 mmol/L (136-145); Total Protein 6.8 g/dL (6.4-8.2)
[2024-10-30 09:21] LABS: PSA, Ultrasensitive 9.9 ng/mL (<= 6.5)
[2024-10-31 16:12] LABS: Testosterone, Total <7.0 ng/dL (240-950)
== END 2024-11-24 23:59 | disposition home or self-care (01) ==
LOC: INF 01:38
PROVIDERS: Nurse Practitioner; PCP Nurse Practitioner Family; Visit Provider Internal Medicine
DX: C61 Malignant neoplasm of prostate (principal); Z79.818 Long term (current) use of other agents affecting estrogen receptors and estrogen levels
CPT/HCPCS: 36415; 80053; 84153; 84403; 85025

== ENCOUNTER 2024-11-20 10:53 | Outpatient (CLI) | payer MEDICARE, SELFPAY ==
--- NOTE | 2024-11-20 10:00 | DI.RAD_ITS ---
Exam(s) XR KNEE LT 4V AP,LAT,BRENDEN,PAT EXAM: XR KNEE LT 4V AP,LAT,BRENDEN,PAT CLINICAL HISTORY: left knee pain. TECHNIQUE: 2D digital imaging was performed of the left knee. Four images were obtained. Merchant,AP, lateral and PA tunnel views were obtained. COMPARISON: No exams were available for comparison FINDINGS: BONES: No acute fracture is present. No bony destructive lesion is seen. JOINTS: There is moderate narrowing in the medial femoral tibial joint. There is a small joint effusion. No loose body. SOFT TISSUE: There is a well corticated osseous density adjacent to the medial femoral condyle which may reflect old injury. IMPRESSION: Moderate narrowing of the medial femoral tibial joint. DATA REPOSITORY: RADIATION DOSE DELIVERED:
== END 2024-11-20 10:54 | disposition home or self-care (01) ==
LOC: DIORS 10:54
PROVIDERS: PCP Nurse Practitioner Family; Referring Provider Nurse Practitioner Family; Visit Provider Physician Assistant
DX: M17.12 Unilateral primary osteoarthritis, left knee (principal); I10 Essential (primary) hypertension; J44.9 Chronic obstructive pulmonary disease, unspecified; C61 Malignant neoplasm of prostate; C78.00 Secondary malignant neoplasm of unspecified lung
CPT/HCPCS: 99213; 20610; J1010; 73564

== ENCOUNTER 2025-01-01 03:26 | Outpatient (CLI) | payer MEDICARE, SELFPAY ==
--- NOTE | 2025-01-01 14:34 | DI.US_ITS ---
APPROVED REPORT EXAM: Comprehensive 2D, Doppler, and color-flow Echocardiogram Patient Location: Out-Patient Staff Software Engineer: Lety Tinajero RDCS (AE) Other Information Study Quality: Adequate Conclusion Normal left ventricular wall thickness and chamber size. Ejection fraction 55 to 60%. Wall motion is normal Normal right ventricular size and function Both atria are normal in size There is no structural or hemodynamically significant valvular disease Ascending aorta measures 3.8 cm There is no significant change compared to an echocardiogram from 2022 Wall motion Left Ventricle The left ventricle is normal size. The left ventricular systolic function is normal. The left ventricular ejection fraction is within the normal range. There is normal left ventricular wall thickness. There is normal LV segmental wall motion. There is no ventricular septal defect visualized. LVEF is 58%. Right Ventricle The right ventricle is normal size. The right ventricular systolic function is normal. Atria The left atrium size is normal. The right atrium size is normal. The interatrial septum is intact with no evidence for an atrial septal defect. Aortic Valve The aortic valve is normal in structure. Aortic valve is trileaflet. There is no aortic valvular stenosis. No aortic regurgitation is present. Mitral Valve The mitral valve is normal in structure. No evidence of mitral valve stenosis. Trace mitral regurgitation. Tricuspid Valve The tricuspid valve is normal in structure. There is no tricuspid valve stenosis. Trace to mild tricuspid regurgitation. The RVSP is 30.9_ mmHg. Pulmonic Valve The pulmonary valve is normal in structure. There is no pulmonic valvular stenosis. Trace pulmonic regurgitation. Great Vessels The aortic root is normal in size. The ascending aorta is mildly dilated. Aortic arch is not well visualized. IVC is normal in size and collapses >50% with inspiration. Pericardium There is no pericardial effusion. 2D Dimensions IVSD d PLAX 1.14 cm M: 0.6-1.2 Ao Root d 3.47 cm M: 3.1 - 3.7 LVPW d PLAX 1.14 cm M: 0.6 - 1.2 Ao Asc Diam d 3.80 cm M: 2.6 - 3.4 LVID d PLAX 4.60 cm M: 4.2 - 5.8 LVDs 3.20 cm M: 2.5 - 4.0 LV EF Teichholz 57.9 % FS 30.44 % LV EDV (Teich) 96.9 mL LV ESV (Teich) 40.8 mL M-Mode TAPSE 2.91 cm (M/F) >1.7 Auto EF LV EDV A4C 126.4 mL LV EDV A2C 112.1 mL LV EDV BP 116.9 mL LV ESV A4C 52.6 mL LV ESV A2C 46.2 mL LV ESV BP 49.0 mL LVEF(%) A4C 58.4 % LVEF(%) A2C 58.8 % LVEF(%) BP 58.1 % LV SV A4C 73.8 ml LV SV A2C 66.0 ml LV SV BP 68.0 ml LV CO A4C 4.8 L/min LV CO A2C 3.9 L/min LV CO BP 4.4 L/min HR A4C 65.22 BPM HR A2C 59.80 BPM LV EDV Index (BP) LA Volume LA Length A4C 5.8 cm LA Length A2C 5.4 cm LA Area A4C s 21.13 cm2 LA Area A2C s 17.00 cm2 LA Vol A4C A-L 65.51 mL LA Vol A2C A-L 45.30 mL LA Vol Biplane A-L 56.3 mL LA Vol/BSA A4C A-L LA Vol/BSA A2C A-L LA Vol/BSA BP A-L 28.4 mL/m2 LA Vol A4C MOD 61.9 mL LA Vol A2C MOD 41.5 mL LA Vol BP MOD 52.2 mL RA Volume RA Area A4C 16.0 cm2 RA ESV A4C (A-L) 40.9mL RA Vol/BSA A4C A-L RA Length A4C 5.3 cm RA ESV A4C (MOD) 37.6mL LV Diastology MV E' medial 0.082 (>0.07 m/s) MV E Vmax 0.55 (0.4-1.3 m/s) MV E/E' MED 6.71 (<14) MV A Vmax 0.90 (0.4-1.3 m/s) MV E' lateral 0.071 (>0.1 m/s) E/A Ratio 0.6 MV E/E' LAT 7.81 (<14) MV E' Average 0.077 m/s MV E/E'(average) 7.22 Aortic Valve AoV Vmax 1.36 m/s LVOT Vmax 1.09 m/s AoV Peak Grad 7.4 mmHg LVOT Peak Grad 4.7 mmHg AoV Area (Vmax) 2.57 cm2 LVOT VTI 0.241 m AoV VTI 0.306 m LVOT Mean Grad 2.7 mmHg AoV Mean Jackson. 0.95 m/s LVOT SV 77.11 mL AoV Mean Grad 4.0 mmHg LVOT Diam s 2.00 cm AoV Area (VTI) 2.52 cm2 AV Regurg Peak Gr. 7.38 mmHg Velocity Ratio 0.80 Mitral Valve MV DT 358 (160-240 msec) MV Vmax TIPS 0.92 m/s MV Mean Grad 1.1 (<2mmHg) MV VTI 0.269 m Pulmonary Valve PV Vmax 1.03 (0.5-1.5 m/s) RVOT Vmax 0.77 m/s PV Peak Grad 4.2 mmHg RVOT Peak Gr. 2.4 mmHg PV Mean Jackson 0.72 m/s RVOT VTI 0.173 m PV Mean Grad 2.4 mmHg RVOT Mean Gr. 1.5 mmHg Tricuspid Valve RA Pressure 3.00 mmHg TR Vmax 2.64 m/s TV S' 0.17 m/s TR Peak Grad 27.8 mmHg RVSP (TR) 30.9 mmHg
== END 2025-01-01 03:46 ==
LOC: DI 03:26
PROVIDERS: PCP Nurse Practitioner Family; Visit Provider Internal Medicine Cardiovascular Disease
DX: I77.810 Thoracic aortic ectasia (principal)
CPT/HCPCS: 93306

== ENCOUNTER 2025-01-28 03:09 | Outpatient (RCR) | payer MEDICARE, SELFPAY ==
[2025-01-28 10:26] LABS: Abs Immature Grans 0.02 10^3/uL (0.0-0.06); HCT 39.0 % (40.0-50.0); HGB 13.5 g/dL (13.5-17.5); Immature Grans % 0.2 %; MCH 32.8 pg (27.0-33.0); MCHC 34.6 % (32.0-36.0); MCV 95 fL (80-95); MPV 9.9 fL (8.0-11.0); Platelet Count 205 10^3/uL (130-400); RBC 4.12 10^6/uL (4.36-5.78); RDW 12.2 % (11.8-14.1); RDW-SD 42.5 fL; WBC 8.29 10^3/uL (4.4-10.8)
[2025-01-28 10:41] LABS: ALT 17 U/L (16-63); AST 15 U/L (15-37); Albumin 3.6 g/dL (3.4-5.0); Alkaline Phosphatase 111 U/L (46-116); Anion Gap 8.0 mmol/L (3-11); BUN 12 mg/dL (7-18); Bilirubin, Total 0.6 mg/dL (0.2-1.0); CO2 29.0 mmol/L (21.0-32.0); Calcium 8.9 mg/dL (8.5-10.1); Chloride 105 mmol/L (98-107); Estimated GFR 96.69 (mL/min/1.73m2); Glucose 84 mg/dL (74-106); Potassium 3.7 mmol/L (3.5-5.1); Sodium 142 mmol/L (136-145); Total Protein 6.5 g/dL (6.4-8.2)
== END 2025-02-24 23:59 | disposition home or self-care (01) ==
LOC: INF 03:09
PROVIDERS: PCP Nurse Practitioner Family; Visit Provider Nurse Practitioner
DX: C61 Malignant neoplasm of prostate (principal); Z79.818 Long term (current) use of other agents affecting estrogen receptors and estrogen levels
CPT/HCPCS: 36415; 80053; 84153; 84403; 85025

== ENCOUNTER → 2025-03-18 09:59 | Outpatient (BNVA) | payer MEDICARE, SELFPAY | PROVIDERS: PCP Nurse Practitioner Family; Referring Provider Nurse Practitioner Family; Visit Provider Physician Assistant Surgical | DX: C61 Malignant neoplasm of prostate (principal); C79.51 Secondary malignant neoplasm of bone; R06.09 Other forms of dyspnea; J43.9 Emphysema, unspecified; J95.811 Postprocedural pneumothorax; Z87.891 Personal history of nicotine dependence | CPT/HCPCS: 99214 ==